=== PATIENT | male | born 1975 | race Caucasian/White ===

== ENCOUNTER → 2023-06-18 12:52 | Outpatient (REF) | payer OTHER, SELFPAY ==
[2023-06-18 14:38] LABS: % Basophils 0.7 % (0-2); % Eosinophils 2.6 % (0-6); % Immature Granulocytes 0.4 % (0-0.5); % Lymphocytes 24.7 % (20.5-51.1); % Neutrophils 61.6 % (42.2-75.2); Absolute Basophils 0.1 10^3/uL (0-0.2); Absolute Eosinophils 0.2 10^3/uL (0-0.7); Absolute Monocytes 0.8 10^3/uL (0.1-0.6); Hematocrit 40.4 % (39.0-52.0); Hemoglobin 14.1 g/dL (13.0-18.0); Mean Corp Hgb Conc. 34.9 g/dL (33.0-37.0); Mean Corpuscular Hgb 30.2 pg (27.0-31.0); Mean Corpuscular Volume 86.5 fL (80.0-94.0); Mean Platelet Volume 9.8 fL (7.4-10.4); Nucleated Red Blood Cells % 0 % (-); Platelet Count 253 10^3/uL (130-400); Red Blood Cell Count 4.67 10^6/uL (4.70-6.10); Red Cell Dist. Width 12.8 % (11.5-14.5); White Blood Cell Count 8.1 10^3/uL (4.8-10.8)
[2023-06-18 14:42] LABS: ALT (SGPT) 19 U/L (0-50); AST (SGOT) 26 U/L (17-59); Albumin 4.7 g/dl (3.5-5.0); Alkaline Phosphatase 86 U/L (38-126); Blood Urea Nitrogen 13 mg/dl (9-20); Calcium 9.8 mg/dl (8.4-10.2); Carbon Dioxide 30 mmol/L (22-30); Chloride 99 mmol/L (98-107); Glucose 87 mg/dl (70-99); Potassium 4.5 mmol/L (3.5-5.1); Sodium 139 mmol/L (135-145); Total Bilirubin 0.6 mg/dl (0.2-1.3); Total Protein 7.5 g/dl (6.3-8.2); eGFR > 60.00
[2023-06-18 14:46] LABS: C-Reactive Protein < 5.00 mg/L (0.0-10.00)
[2023-06-18 14:51] LABS: Total Iron Binding Capacity 347 ug/dl (261-462)
[2023-06-18 15:02] LABS: Erythrocyte Sed Rate 9 mm/hour (0-20)
[2023-06-18 15:20] LABS: Ferritin 46.1 ng/ml (17.9-464.0)
[2023-06-18 15:34] LABS: Vitamin B12 419 pg/ml (239-931)
[2023-06-20 05:13] LABS: Hepatitis B Surface Antigen Negative (Negative)
[2023-06-20 05:31] LABS: Hepatitis B Core Ab, Total Negative (Negative); Hepatitis B Surface Antibody Negative
[2023-06-20 22:31] LABS: Vitamin D 1,25 Dihydroxy 82.3 pg/mL (19.9-79.3)
== END ==
LOC: REG 12:52
PROVIDERS: ATTENDING PHYSICIAN Internal Medicine
DX: K50.818 Crohn's disease of both small and large intestine with other complication (principal)
CPT/HCPCS: 36415; 80053; 82607; 82652; 82728; 83550; 85025; 85652; 86140; 86704; 86706; 87340

== ENCOUNTER → 2023-12-10 10:01 | Outpatient (REF) | payer OTHER, SELFPAY ==
[2023-12-10 12:07] LABS: % Basophils 1.1 % (0-2); % Eosinophils 2.2 % (0-6); % Immature Granulocytes 0.3 % (0-0.5); % Lymphocytes 25.9 % (20.5-51.1); % Monocytes 9.6 % (1.7-9.3); % Neutrophils 60.9 % (42.2-75.2); Absolute Basophils 0.1 10^3/uL (0-0.2); Absolute Eosinophils 0.2 10^3/uL (0-0.7); Absolute Lymphocytes 2.1 10^3/uL (1.2-3.4); Absolute Monocytes 0.8 10^3/uL (0.1-0.6); Absolute Neutrophils 4.8 10^3/uL (1.4-6.5); Hematocrit 43.9 % (39.0-52.0); Hemoglobin 14.7 g/dL (13.0-18.0); Mean Corp Hgb Conc. 33.5 g/dL (33.0-37.0); Mean Corpuscular Hgb 29.5 pg (27.0-31.0); Nucleated Red Blood Cells % 0 % (-); Platelet Count 270 10^3/uL (130-400); Red Blood Cell Count 4.99 10^6/uL (4.70-6.10); Red Cell Dist. Width 12.7 % (11.5-14.5); White Blood Cell Count 7.9 10^3/uL (4.8-10.8)
[2023-12-10 12:22] LABS: ALT (SGPT) 22 U/L (0-50); AST (SGOT) 30 U/L (17-59); Albumin 4.9 g/dl (3.5-5.0); Alkaline Phosphatase 92 U/L (38-126); Blood Urea Nitrogen 11 mg/dl (9-20); Carbon Dioxide 27 mmol/L (22-30); Chloride 101 mmol/L (98-107); Glucose 83 mg/dl (70-99); Sodium 143 mmol/L (135-145); Total Protein 7.7 g/dl (6.3-8.2); eGFR > 60.00
[2023-12-10 12:35] LABS: C-Reactive Protein < 5.00 mg/L (0.0-10.00)
[2023-12-10 12:44] LABS: Erythrocyte Sed Rate 7 mm/hour (0-20)
[2023-12-10 12:53] LABS: Vitamin D, 25-OH*** 47.2 ng/mL (30-80)
[2023-12-10 13:27] LABS: Vitamin B12 481 pg/ml (239-931)
== END ==
LOC: REG 10:01
PROVIDERS: ATTENDING PHYSICIAN Internal Medicine; FAMILY PHYSICIAN Family Medicine
DX: R53.83 Other fatigue (principal); K50.818 Crohn's disease of both small and large intestine with other complication
CPT/HCPCS: 36415; 80053; 82306; 82607; 85025; 85652; 86140

== ENCOUNTER 2024-12-28 13:58 | Inpatient (IN) | payer OTHER, SELFPAY ==
[2024-12-28] VITALS (12 sets, daily range): BP systolic 105–143; BP diastolic 64–97; BMI 23.2; BMI 21.0
--- NOTE | 2024-12-28 09:40 | ED.GENMED ---
History of Present Illness
<Linda Liu PA-C - Last Filed: 12/28/24 13:17>
General
Chief Complaint: Rectal Bleeding
Source: patient
Exam Limitations: none
Time Seen by Provider: 12/28/24 09:11
Nursing documentation reviewed up to this point in time: agreed with
History of Present Illness
History of Present Illness:
see MDM
Past History
<MICHAEL Perry Last Filed: 12/28/24 13:17>
Past History
ED Past Medical History: Other (crohn's disease)
ED Past Surgical History: Bowel resection
Social History
Tobacco: Non-smoker
Alcohol: Occasional
Drug: Marijuana
Personal:
Living: with family
Employment: Employed
Family History
Family History: Other (Noncontributory)
Phy Exam
<MICHAEL Perry Last Filed: 12/28/24 13:17>
Physical Exam
Physical Exam:
GENERAL: Alert , in no apparent distress
EYE: pupils equal and reactive
NECK: Supple
ENT: o/p clr, mmm.
CARDIAC: Regular rate and rhythm .
LUNGS: Clear breath sounds bilaterally, no acute respiratory distress, no wheezes/rales/rhonchi
ABDOMEN: Soft, very minimal lower abdominal tenderness, no r/g, no cvat, normal bowel sounds
Rectal deferred, patient showed me a picture with gross bloody stool and colored water in the toilet
NEUROLOGICAL: Alert and oriented, no focal neuro deficits
SKIN: Warm and dry, skin intact.
MUSCULOSKELETAL: No edema, well perfused. neg elenita's sign
PSYCH: Normal and appropriate interaction.
Course
<MICHAEL Perry Last Filed: 12/28/24 13:17>
Orders/Labs/Results
Orders:
Orders
12/28/24 09:43
Complete Blood Count/With Diff Urgent
ESR [Erythrocyte Sed Rate] Urgent
Lactic Acid Urgent
PTT Urgent
Prothrombin Time Urgent
12/28/24 Lunch
NPO
Allow oral meds: No
Allow clear liquids: No
12/28/24 10:11
0.9% Sodium Chloride 1000 ml [Nss] 1,000 ml IV BOLUS
12/28/24 10:15
Stool Culture Urgent
MACK Source: Feces/Stool
Specimen Description:
Date Specimen was Collected: 12/28/24
Time Specimen was Collected: 10:10
Stool For WBC Urgent
MACK Source: ST
Specimen Description:
Date Specimen was Collected: 12/28/24
Time Specimen was Collected: 10:10
Comment: ST WBC add on per Anne-Marie Clayton
12/28/24 10:16
C DIFF [C difficile Antigen & Toxins] Urgent
MACK Source: Feces/Stool
Specimen Description:
Date Specimen was Collected: 12/28/24
Time Specimen was Collected: 10:10
Giardia/Cryptosporidium Ag Urgent
MACK Source: ST
Specimen Description:
Date Specimen was Collected: 12/28/24
Time Specimen was Collected: 10:10
Comment: Cryptosporidium/Giardia antigen add on per Anne-Maire Clayton
12/28/24 10:42
CT Abd/pelvis Angio W/wo Iv Urgent
Comment:
Reason For Exam: bleeding chrons
12/28/24 10:52
Type+Screen Routine
BBK Wristband Number:
C-Reactive Protein Urgent
Comprehensive Metabolic Panel Urgent
Comment: ADD
Lipase Urgent
Comment: ADD
12/28/24 11:16
Add On- LAB Routine
Tests Added?: Lipase, CMP
12/28/24 12:48
Add On - Microbiology Urgent
Comments:: to stool
Tests Added?: giardia/cryptosporidium and stool for WBC
12/28/24 13:39
Surgical Procedure As Directed
Surgical Procedure: colo
12/28/24 13:43
Admit/Transfer Patient As Directed
Co-Sign Provider:
Level of Care: Inpatient admission
Assign to:: Medical/Surgical
Physician / Group: Hospitalists
Diagnosis: Rectal bleeding
Reason for Hospitalization: Rectal bleeding
Expected length of stay greater than two midnights?: Yes
ELOS- Estimated Length of Stay in days: 2
I certify the patient meets the requirements for IP care: Yes
PRN Pain Medication Management As Directed
May give lesser potent ordered pain med per pt: Yes
preference::
Protocol:: Medication orders for pain may be administered in a
manner that supports deferring to patient preference
when the pt is:
- Requesting an ordered lesser potent pain medication.
Least to most potent pain medications are defined
as: acetaminophen < NSAID < tramadol < opioids
(morphine, oxycodone, hydromorphone).
- Requesting a lesser dose of the same medication IF
ORDERED.
- Requesting a less intrusive route of administration
if both routes are prescribed by the provider (PO <
IV).
12/28/24 13:44
Code Status As Directed
Resuscitation Status: Full Code
12/28/24 16:37
Bisacodyl [Dulcolax] 10 mg RECTAL [id number] PRN
Docusate W/Senna [Senokot-S] 1 tablet PO BIDPRN PRN
Lactated Ringers [Lr] 1,000 ml IV 100 mls/hr
Polyethylene Glycol Powder [Miralax] 17 grams PO DAILYPRN PRN
12/28/24 16:37
Urinalysis Routine
Activity As Directed
Activity Level: As Tolerated
Pneumatic Compression Sleeves As Directed
Type: Knee high
Vital Signs As Directed
Frequency: Per unit guidelines
Pulse Ox/spot Check [RESP] Routine
Quantity: 1
DX Deep Vein Thrombosis Video Routine
12/28/24 17:38
Calprotectin, Fecal [S] Urgent
Date Specimen was Collected: 12/28/24
Time Specimen was Collected: 10:10
12/29/24 05:33
Complete Blood Count/With Diff IN AM
Comprehensive Metabolic Panel IN AM
Ferritin IN AM
Iron IN AM
Magnesium IN AM
PTT IN AM
Prothrombin Time IN AM
Total Iron Binding IN AM
Vitamin B12 IN AM
01/11/25 08:00
Cyanocobalamin 1,000 mcg IM Q2W
Abnormal Lab Results
12/28/24
09:43
RBC 4.52 L 10^6/uL
(4.70-6.10)
Hct 38.9 L %
(39.0-52.0)
Absolute Monos (auto) 0.8 H 10^3/uL
(0.1-0.6)
Lymphocytes % 20.0 L %
(20.5-51.1)
Monocytes % 9.9 H %
(1.7-9.3)
12/28/24 09:43
12/28/24 11:05
Vital Signs
Initial and Last Documented VS:
Initial Vital Signs
Temp Pulse Resp BP Pulse Ox
97.8 F 94 18 143/94 100
12/28/24 08:46 12/28/24 08:46 12/28/24 08:46 12/28/24 08:46 12/28/24 08:46
Last Documented Vital Signs
Temp Pulse Resp BP Pulse Ox
36.6 C 80 23 117/79 100
12/28/24 09:34 12/28/24 12:15 12/28/24 12:15 12/28/24 12:00 12/28/24 10:00
<David Farnsworth, DO - Last Filed: 12/29/24 08:24>
Orders/Labs/Results
Orders:
Orders
12/28/24 09:43
Complete Blood Count/With Diff Urgent
ESR [Erythrocyte Sed Rate] Urgent
Lactic Acid Urgent
PTT Urgent
Prothrombin Time Urgent
12/28/24 Lunch
NPO
Allow oral meds: No
Allow clear liquids: No
12/28/24 10:11
0.9% Sodium Chloride 1000 ml [Nss] 1,000 ml IV BOLUS
12/28/24 10:15
Stool Culture Urgent
MACK Source: Feces/Stool
Specimen Description:
Date Specimen was Collected: 12/28/24
Time Specimen was Collected: 10:10
Stool For WBC Urgent
MACK Source: ST
Specimen Description:
Date Specimen was Collected: 12/28/24
Time Specimen was Collected: 10:10
Comment: ST WBC add on per Anne-Marie Clayton
12/28/24 10:16
C DIFF [C difficile Antigen & Toxins] Urgent
MACK Source: Feces/Stool
Specimen Description:
Date Specimen was Collected: 12/28/24
Time Specimen was Collected: 10:10
Giardia/Cryptosporidium Ag Urgent
MACK Source: ST
Specimen Description:
Date Specimen was Collected: 12/28/24
Time Specimen was Collected: 10:10
Comment: Cryptosporidium/Giardia antigen add on per Anne-Marie Clayton
12/28/24 10:42
CT Abd/pelvis Angio W/wo Iv Urgent
Comment:
Reason For Exam: bleeding chrons
12/28/24 10:52
Type+Screen Routine
BBK Wristband Number:
C-Reactive Protein Urgent
Comprehensive Metabolic Panel Urgent
Comment: ADD
Lipase Urgent
Comment: ADD
12/28/24 11:16
Add On- LAB Routine
Tests Added?: Lipase, CMP
12/28/24 12:48
Add On - Microbiology Urgent
Comments:: to stool
Tests Added?: giardia/cryptosporidium and stool for WBC
12/28/24 13:39
Surgical Procedure As Directed
Surgical Procedure: colo
12/28/24 13:43
Admit/Transfer Patient As Directed
Co-Sign Provider:
Level of Care: Inpatient admission
Assign to:: Medical/Surgical
Physician / Group: Hospitalists
Diagnosis: Rectal bleeding
Reason for Hospitalization: Rectal bleeding
Expected length of stay greater than two midnights?: Yes
ELOS- Estimated Length of Stay in days: 2
I certify the patient meets the requirements for IP care: Yes
PRN Pain Medication Management As Directed
May give lesser potent ordered pain med per pt: Yes
preference::
Protocol:: Medication orders for pain may be administered in a
manner that supports deferring to patient preference
when the pt is:
- Requesting an ordered lesser potent pain medication.
Least to most potent pain medications are defined
as: acetaminophen < NSAID < tramadol < opioids
(morphine, oxycodone, hydromorphone).
- Requesting a lesser dose of the same medication IF
ORDERED.
- Requesting a less intrusive route of administration
if both routes are prescribed by the provider (PO <
IV).
12/28/24 13:44
Code Status As Directed
Resuscitation Status: Full Code
12/28/24 16:37
Bisacodyl [Dulcolax] 10 mg RECTAL [id number] PRN
Docusate W/Senna [Senokot-S] 1 tablet PO BIDPRN PRN
Lactated Ringers [Lr] 1,000 ml IV 100 mls/hr
Polyethylene Glycol Powder [Miralax] 17 grams PO DAILYPRN PRN
12/28/24 16:37
Urinalysis Routine
Activity As Directed
Activity Level: As Tolerated
Pneumatic Compression Sleeves As Directed
Type: Knee high
Vital Signs As Directed
Frequency: Per unit guidelines
Pulse Ox/spot Check [RESP] Routine
Quantity: 1
DX Deep Vein Thrombosis Video Routine
12/28/24 17:38
Calprotectin, Fecal [S] Urgent
Date Specimen was Collected: 12/28/24
Time Specimen was Collected: 10:10
12/29/24 05:33
Complete Blood Count/With Diff IN AM
Comprehensive Metabolic Panel IN AM
Ferritin IN AM
Iron IN AM
Magnesium IN AM
PTT IN AM
Prothrombin Time IN AM
Total Iron Binding IN AM
Vitamin B12 IN AM
01/11/25 08:00
Cyanocobalamin 1,000 mcg IM Q2W
Abnormal Lab Results
12/28/24
09:43
RBC 4.52 L 10^6/uL
(4.70-6.10)
Hct 38.9 L %
(39.0-52.0)
Absolute Monos (auto) 0.8 H 10^3/uL
(0.1-0.6)
Lymphocytes % 20.0 L %
(20.5-51.1)
Monocytes % 9.9 H %
(1.7-9.3)
12/28/24 09:43
12/28/24 11:05
Vital Signs
Initial and Last Documented VS:
Initial Vital Signs
Temp Pulse Resp BP Pulse Ox
97.8 F 94 18 143/94 100
12/28/24 08:46 12/28/24 08:46 12/28/24 08:46 12/28/24 08:46 12/28/24 08:46
Last Documented Vital Signs
Temp Pulse Resp BP Pulse Ox
36.6 C 80 23 117/79 100
12/28/24 09:34 12/28/24 12:15 12/28/24 12:15 12/28/24 12:00 12/28/24 10:00
<Linda Liu PA-C - Last Filed: 12/28/24 13:17>
MDM/Problems Addressed
Differential Diagnosis Includes:
see MDM
MDM/Problems Addressed:
Note:
CHIEF COMPLAINT(S)
Blood in stool, diarrhea.
HISTORY OF PRESENT ILLNESS
The patient is a 49-year-old male with a history of Crohns disease. He reports experiencing bloody stools and diarrhea, which began the previous night. He describes waking up in the middle of the night with diarrhea, noticing blood upon wiping,
which was darker, resembling 'black garcia.' The morning following, he had multiple episodes on the toilet with similar findings, noting blood mixed with the stool. The patient recounts a history of surgical intervention for Crohns disease,
including a partial small bowel resection in 2021 due to persistent bleeding and low hemoglobin levels which required transfusions. He mentions a prior small bowel resection in 2005. He reports having previous treatments for Crohns disease,
including various medications, the last being risankizumab (Skyrizi). He has been medication-free for a significant period due to adverse effects.
The patient associates recent gastrointestinal symptoms with a sinus infection treated two to three weeks ago with doxycycline and amoxicillin clavulanate, alongside prednisone (20 mg for five days). He reports stopping the antibiotics a day early
due to gastrointestinal discomfort. He acknowledges cumulative stress due to his fathers recent surgery and diagnosis of glioblastoma around mid-October.
The patient notes feeling 'drained,' with no significant abdominal pain, vomiting, or fever. He has a past habit of examining his stool, indicating anxiety related to previous experiences of severe bleeding and hospitalization. He perceives the
current episode as less severe than prior tar-like stools but worrisome.
PAST MEDICAL AND SURIGICAL HISTORY
- Crohns disease with partial small bowel resections in 2005 and 2021.
SOCIAL DETERMINANTS AFFECTING HEALTH
The patient reports stress related to his father�s recent hospitalization for glioblastoma and associates current symptoms with anxiety from this and past medical experiences.
MEDICATIONS
- Recently completed a course of doxycycline and amoxicillin clavulanate, accompanied by a prednisone regimen.
PROBLEM LIST
Acute:
- Current gastrointestinal bleeding.
- Diarrhea episode.
Chronic:
- Crohns disease.
PLAN
- Order complete blood count to assess hemoglobin levels.
- Perform stool tests including markers for Crohns disease and to rule out infections like Clostridioides difficile.
- Communicate findings with the real estate director.
- Discuss potential need for CT imaging to evaluate further.
- Consider inpatient observation if symptoms worsen or if tests indicate a need for immediate intervention.
- Evaluate the need for reintroduction of medications for Crohns management after ruling out infections.
DIFFERENTIAL DIAGNOSIS
The Differential Diagnosis includes, in no particular order and is not limited to:
1. Crohns disease flare.
2. Gastrointestinal bleeding secondary to Crohns.
3. Peptic ulcer disease.
4. Clostridioides difficile infection.
5. Infectious colitis.
6. Nonsteroidal anti-inflammatory drug-induced enteropathy.
7. Stress-related gastrointestinal disturbance.
8. Malignancy such as colorectal cancer.
9. Mesenteric ischemia.
10. Acute infectious gastroenteritis.
12/28/24 - 11:40
Patient presents with non-painful rectal bleeding noted to be a mix of red and maroon, mostly occurring since brick layer with three to four episodes along with some diarrhea and minimal pain. He recently completed antibiotics and steroids for a
sinus infection. GI consultation recommended a CT angiography for further evaluation. Hemoglobin is stable at 13. Referred to emergency department by his GI doctor. Rectal exam deferred as patient provided a photo of the bleeding.
12/28/24 - 13:15
CT scan findings reveal active bleeding at the anastomosis site from a previous bowel surgery, potentially contributing to the patients ongoing significant rectal bleeding and decreased hemoglobin levels. The bleeding appears to be intraluminal,
corresponding with the black and red blood in stool samples. Interventional radiology embolization or surgical intervention by colorectal specialists might be necessary to manage this bleeding, as spontaneous cessation is uncertain given current
symptoms. Continued monitoring of hemoglobin levels and stool output is crucial. Multidisciplinary collaboration with gastrointestinal, radiology, and surgical teams is underway to formulate an optimal treatment plan.
<Linda Liu PA-C - Last Filed: 12/28/24 13:17>
*Pulse Oximetry
SaO2: 98
Oxygen Mode of Delivery: Room air
Patient hypoxic: no (100)
*Critical Care Note
Total Time (30-74mins, 75-104mins- exclusive of procedures): Not Applicable
ED Attending Note
<Linda Liu PA-C - Last Filed: 12/28/24 13:17>
-
Portions of this chart may have been created with voice recognition software.� Occasional wrong word or��sound alike� substitutions may have occurred due to the inherent limitations of voice recognition software.
<David Farnsworth DO - Last Filed: 12/29/24 08:24>
ED Attending Note
Patient seen and examined by attending physician: Yes
I performed the substantive portion of visit, reviewed & personally made and approve the management plan that is documented in note by myself or SERG.: Yes
ED Attending Note:
Seen with PA examined independently 49-year-old male Crohn's not on active treatment 2 prior resections presents with rectal bleeding small amount of cramping enough to fill toilet bowl, no blood thinners, labs noted reviewed GI ordered CT angiogram
which was positive at the anastomosis reviewed with patient GI colorectal IR overtaxed patient will be admitted since that the plan is to start with a colonoscopy perhaps further treatments pending his course
Discharge Plan
Departure
Patient Disposition: Admit
Date of Disposition: 12/28/24
Time of Disposition: 13:00
Admit to: Med/Surg
Presentation/result/management discussed w/ accepting MD/DO: Hospitalist
Condition: Fair
Covid-19: Not Applicable
Discharge Problem:
Acute GI bleeding
Interventions
Interventions:
*Risk Screen - Suicide Last Done: 12/28/24 08:46
*General Assessment Last Done: 12/28/24 08:46
*Neglect/Abuse Screening Last Done: 12/28/24 09:47
*ED- Fall Risk Assessment Last Done: 12/28/24 09:47
*ED COVID-19 Vaccine History Last Done: 12/28/24 09:47
*ED Influenza Vaccine History Last Done: 12/28/24 09:47
*Nursing Disposition Last Done: 12/28/24 16:34
UO-Skthfp-Jdrwdiyqxm Assessment Last Done: 12/28/24 09:54
ED- Cardiac Assessment Last Done: 12/28/24 09:54
ED- Pulmonary Assessment Last Done: 12/28/24 09:54
Discharge Date and Time
Discharge Date/Time: 12/28/24 16:36
[2024-12-28 09:57] LABS: Hematocrit 38.9 % (39.0-52.0); Hemoglobin 13.2 g/dL (13.0-18.0); Mean Corp Hgb Conc. 33.9 g/dL (33.0-37.0); Mean Corpuscular Volume 86.1 fL (80.0-94.0); Nucleated Red Blood Cells % 0 % (-); Platelet Count 267 10^3/uL (130-400); Red Cell Dist. Width 13.0 % (11.5-14.5)
[2024-12-28 10:07] LABS: INR 0.99; PT 13.4 Sec (11.4-14.6)
[2024-12-28 10:08] LABS: APTT 29.8 Sec (23.4-35.0)
--- NOTE | 2024-12-28 10:21 | CON.GI ---
Addendum entered and electronically signed by Tiffani Felder MD 12/28/24 17:17:
I saw and examined the patient.
The VICE PRESIDENT OF OPERATIONS or PA's note was reviewed and I agree with the note.
Comment: 49-year-old male with history of Crohn's disease of the small bowel since 1992 status post partial small bowel resection in 2005 and again had segment of small bowel resection with ileocolonic anastomosis in 2021 at [facility], followed by
Dr. Barreto, failed Adrian Jacob Stelara now presenting with rectal bleeding since last night. In the last couple of days has had some abdominal bloating And since Last Night Had Multiple Episodes of Bright Blood with bowel movements. He reports
needing antibiotics and steroids for sinusitis twice since October 2024, last treatment with steroids or antibiotics was last week. Prior to that he was doing relatively well. No abdominal pain, nausea or vomiting. No heartburn or trouble
swallowing. 1 formed stool most days without any blood or black stool. Took 1 Excedrin couple of days ago but no other NSAID use.
He is currently not on any biologic for his Crohn's disease.
Has history of small bowel stricture status post dilation in 2021 and June. History of B12 deficiency.
In the emergency room, CBC, CMP and lipase in normal range.CT angiogram showing small focus of active bleeding in the right abdomen proximal limit of anastomosis, possibly ileocolonic anastomosis.
Prior to this last imaging with MR enterography in September 2021 was unremarkable.
- Rectal bleeding with CT angiogram showing active focus of bleeding from the ileocolonic anastomosis
Rule out anastomotic site ulcer bleed
Will do colonoscopy with rapid prep
Monitor H&H and transfuse if needed
ESR and CRP 12/28/2024 in normal range suggesting no active inflammation related to Crohn's but will follow-up on the colonoscopy as well.
Colorectal surgery is on board as well
Will follow
Original Note:
Consultation
-
Date/Time Consultation Requested: 12/28/24 1030
Date/Time Consultation Performed: 12/28/24 1030
Requesting Provider: David Farnsworth DO
Performing Provider: NICA Black, Tiffani Felder MD
Reason for Consultation: rectal bleeding
Medical History
Chief Complaint / HPI
Chief Complaint: rectal bleeding
History of Present Illness:
Pt is a 49yo presents with hx B12 deficiency, Crohn's disease since 1992. He has hx SB resection in 2005 after 14 years without medications. He has been on multiple medication including Mesalamine agents, steroids, Remicade with reaction with
restart of medication. He then went on Humira and Stelara. Around 2021 he had dilation of anastomosis and began with recurrent rectal bleeding and had eventual SB resection x2 at [facility] for actively bleeding and noted tight stricture
proximal ileum/distal jejunal. His last follow up in [address] Barreto and has not restarted medication and encouraged to restart for concern for recurrence. He was also recommended colonoscopy but did not proceed. He now presents with
onset of rectal bleeding. He admits to recent 2 course of antibiotic therapy for sinus infections and began 12/27 rectal bleeding with about 4 episodes prior to admission and 1 episode in ER with dark red, black and red blood with stools. Pt
deferred rectal exam in ER. On admission note with hbg 13.2 with normal BUN, CRP and ESR.
Pt otherwise admits to mild nausea and minimal lower abdominal pain. He also admits to some looser stool with recent antibiotic use. He otherwise denies dysphagia, odynophagia, GERD, constipation.
08/09/21-EGD� - Normal esophagus� - Gastritis. Biopsied - Normal examined duodenum. Biopsied. neg
08/09/21 colonoscopy - The entire examined colon is normal - Stricture in the terminal ileum.
Past Medical History
Past Medical History: Other (crohn's disease, prior GI bleeding, B12 deficiency, anemia )
Past Surgical History: Bowel Resection (2005 and 2021 and hx prior anastomosis dilation), Orthopedic (shoulder surgery ) and Urological (vastectomy)
Social History
Tobacco: Non-Smoker
Alcohol: Occasional
Drug: Marijuana
Personal:
Living: With Family
Employment: Employed
Family History
Family History: Other (grandfather with crohns, other grandfather and grandmother with colon CA )
Allergies / Home Medications
Allergy/AdvReac Type Severity Reaction Status Date / Time
aspirin Allergy doesn't Verified 12/28/24 08:51
take due
to Crohn's
Disease
infliximab (From Remicade) Allergy Anaphylaxis Verified 12/28/24 08:51
NSAIDS (Non-Steroidal Allergy Patient Verified 12/28/24 08:51
Anti-Inflamma states he
is able to
take
Advil,
Ibuprofen
Salicylates * Allergy doesn't Verified 12/28/24 08:51
take due
to Crohn's
Disease
�Medication �Instructions �Recorded
cyanocobalamin (vitamin B-12) 1,000 mcg IM Q2W 12/26/21
1,000 mcg/mL injection solution
Review of Systems
-
History Source: Patient
Constitutional: Reports No Symptoms
EENT: Reports Other (recent sinus infectious with 2 course of antibiotics )
Respiratory: Reports No Symptoms
Cardiac: Reports No Symptoms
Abdomen/GI: Reports Abdominal Pain, Nausea, Bloody Stools and Black Stools
: Reports No Symptoms
Skin: Reports No Symptoms
Neurological: Reports No Symptoms
Endocrine: Reports No Symptoms
Hematologic/Lymphatic: Reports No Symptoms
Vital Signs
Temp Pulse Resp BP Pulse Ox
97.9 F 92 14 127/87 99
12/28/24 09:34 12/28/24 09:34 12/28/24 09:34 12/28/24 09:34 12/28/24 09:54
Physical Exam
Exam
General: Well Developed, Well Nourished and No Apparent Distress
HEENT: Normocephalic and Anicteric
Respiratory: Clear
Cardiac: Regular Rhythm
GI: Soft, Non Tender and Non Distended
Rectal: Other (pt declined ER rectal )
Musculoskeletal: No Clubbing and No Cyanosis
Skin: Dry
Neuro: Awake, Alert and AO x 3
Psych: Calm
Results
WBC 8.2 10^3/uL (4.8-10.8) 12/28/24 09:43
Hgb 13.2 g/dL (13.0-18.0) 12/28/24 09:43
Hct 38.9 % (39.0-52.0) L 12/28/24 09:43
MCV 86.1 fL (80.0-94.0) 12/28/24 09:43
Plt Count 267 10^3/uL (130-400) 12/28/24 09:43
Absolute Neuts (auto) 5.4 10^3/uL (1.4-6.5) 12/28/24 09:43
PT 13.4 Sec (11.4-14.6) 12/28/24 09:43
INR 0.99 12/28/24 09:43
APTT 29.8 Sec (23.4-35.0) 12/28/24 09:43
Sodium Cancelled 12/28/24 09:43
Potassium Cancelled 12/28/24 09:43
Chloride Cancelled 12/28/24 09:43
Carbon Dioxide Cancelled 12/28/24 09:43
BUN Cancelled 12/28/24 09:43
Creatinine Cancelled 12/28/24 09:43
Calcium Cancelled 12/28/24 09:43
Total Bilirubin Cancelled 12/28/24 09:43
AST Cancelled 12/28/24 09:43
ALT Cancelled 12/28/24 09:43
Alkaline Phosphatase Cancelled 12/28/24 09:43
Lipase Cancelled 12/28/24 09:43
Diagnostic Image Results:
01/27/2020 MR enterography ;small bowel with� no stricture, no enhancement. continue Humira. stricture was likely inflammatory
Prior GI Procedures:�
EGD: 2017; Dr. Silva; irregular Z-line, chronic gastritis, normal duodenum.� Biopsies negative for H. pylori, celiac and Moreira's.
Colonoscopy:
08/09/21-EGD� - Normal esophagus� - Gastritis. Biopsied - Normal examined duodenum. Biopsied. neg
08/09/21 colonoscopy - The entire examined colon is normal - Stricture in the terminal ileum.
06/21/2021; colonoscopy with Dr. Bauer;.� No digital exam are normal, colon entire examined portion normal.� 10 cm from the ileocecal valve contained a benign-appearing intrinsic severe stenosis that was not transversed, TTS dilator was passed
dilated with 10 mm colonic balloon dilator.� There was a superficial tear and some oozing of blood at 10 mm dilation
06/13/2020;Colonoscopy: small bowel and colonic Crohn's, currently off therapy: Good prep to about 12 cm into the ileum.� Scars around the perianal area at 3 and 9:00 concerning for prior fistulas.� Perianal skin tags.� Scattered erythema in the left
colon otherwise colon was endoscopically normal.
Colon biopsies: scattered focal cryptitis otherwise normal.� Terminal ileum endoscopically normal with Chronic and active changes.
Around 12 cm from the ileocecal valve - non-inflammatory stricture that I was unable to pass.� Biopsies were normal.� No inflammatory changes
04/02/2021; colonoscopy, for dilation of small bowel and assessment of disease activity with stricturing ileal crohns controlled on Stelara.�
Excellent prep well into the ileum to the stricture at 12 cm from the ileocecal valve.,� Endoscopically normal colon with normal biopsies throughout without activity.� Distal ileum endoscopically normal with normal biopsies.� Around 12 cm benign
appearing ileal stricture, dilated to 9.5 balloon.� No complications.
08/24/2018 ;colonoscopy, history of stricturing small bowel Crohn's and prior surgery, not on IBD medication.� Recent hospitalization.� Excellent prep to roughly 12 cm into the ileum stopped by a stricture.� Skin tags on perianal exam, fissure on
perianal exam, scattered erythema throughout the rectum sigmoid and descending.� Biopsies consistent with acute cryptitis, negative for dysplasia and a few noncaseating granulomas consistent with Crohn's.� Normal descending colon with normal
biopsies.� Pseudopolyp on the ileocecal valve consistent with acute cryptitis.� Terminal ileum appeared normal with normal biopsies.� Distal ileum strictured and unable to traverse.� terminal ileal stricture consistent with acute inflammation,
negative for dysplasia.� Will start biologic
Assessment / Plan
-
Pt is a 49yo presents with hx B12 deficiency, Crohn's disease since 1992. He has hx SB resection in 2005 after 14 years without medications. He has been on multiple medication including Mesalamine agents, steroids, Remicade with reaction with
restart of medication. He then went on Humira and Stelara. Around 2021 he had dilation of anastomosis and began with recurrent rectal bleeding and had eventual SB resection x2 at [facility] for actively bleeding and noted tight stricture
proximal ileum/distal jejunal. His last follow up in [address] Barreto and has not restarted medication and encouraged to restart for concern for recurrence. He was also recommended colonoscopy but did not proceed. He now presents with
onset of rectal bleeding. He admits to recent 2 course of antibiotic therapy for sinus infections and began 12/27 rectal bleeding with about 4 episodes prior to admission and 1 episode in ER with dark red, black and red blood with stools. Pt
deferred rectal exam in ER. On admission note with hbg 13.2 with normal BUN, CRP<5, ESR 8 on admission.
-rectal bleeding
- hx Crohns with prior anatomic dilation and SB resection 2005 and 2021 with tight stricture proximal ileum/distal jejunal
-hx B12 deficiency and prior anemia
-recent sinusitis with abx x 2
-hx shoulder surgery
-medical non compliance as currently off Crohns therapy
PLAN;
Etiology of bleeding unclear related to underlying crohns disease, anastomotic ulcer vs other
with increased bleeding will check CTA - reviewed with ER
trend hbg and stool record
if continued bleeding may need to colonoscopy EGD/colonoscopy and SB imaging
CRP/ESR normal fecal yogesh pending
will recent antibiotic use check stool studies
reviewed with patient will need to consider eventual therapy for crohns with concern for multiple bowel resection in past and recurrence of disease process
family updated at bedside
-
-
Thank you for consultation and allowing me to participate in the patient's care. Please call the store sales consultant GI physician during the after hours with any questions or concerns.
[2024-12-28] MEDS: NSS 1000 IV (10:22)
[2024-12-28 11:25] LABS: C-Reactive Protein < 5.00 mg/L (0.0-10.00)
[2024-12-28 12:03] LABS: ALT (SGPT) 17 U/L (0-50); AST (SGOT) 21 U/L (17-59); Albumin 3.8 g/dl (3.5-5.0); Alkaline Phosphatase 65 U/L (38-126); Blood Urea Nitrogen 16 mg/dl (9-20); Calcium 8.7 mg/dl (8.4-10.2); Carbon Dioxide 27 mmol/L (22-30); Chloride 107 mmol/L (98-107); Estimated Creatinine Clearance 119 ml/min; Glucose 75 mg/dl (70-99); Lipase 49 U/L (23-300); Potassium 4.4 mmol/L (3.5-5.1); Sodium 138 mmol/L (135-145); Total Protein 6.3 g/dl (6.3-8.2); eGFR > 60.00
--- NOTE | 2024-12-28 13:48 | HPS.HSE ---
Addendum entered and electronically signed by Alyse Frank MD 12/28/24 14:31:
Attending�addendum:
I�saw�and�evaluated�the�patient.�I�reviewed�the�resident�s�note�and�agree�with�findings�and�plan�as�documented�in�the�resident�s�note.��.
Patient is a pleasant 49 years old with a history of chron's disease status post small bowel resection in 2005, currently not on any medications, who came to the ER with rectal bleeding starting today, CT abdomen pelvis with IV contrast in the ER
shows possible anastomosis bleed at ileocolic junction.
�patient seen and examined at bedside, denies any chest pain or shortness of breath, mild abdominal pain, no nausea, no vomiting, no diarrhea or constipation. Headaches.
Physical�exam:
GENERAL : Patient is awake, alert, oriented x3
HEENT: Nonicteric sclerae, PERRLA, EOMI. Oropharynx clear. Moist mucous membranes. Conjunctivae appear well perfused.
CHEST: Chest wall is nontender.
HEART: Regular rate and rhythm without murmurs.
LUNGS: Clear to auscultation bilaterally.
ABDOMEN: Soft, positive bowel sounds, nontender, no organomegaly.
RECTAL: Deferred.
MUSCLES/EXTREMITIES No abnormal range of motion, no swelling.SKIN: No rash, no excessive bruising, petechiae, or purpura.
NEUROLOGIC: Cranial nerves II-XII intact without motor/sensory deficit.
�
Assessment/plan:
Rectal bleeding.
CTA shows Small focus of active intestinal bleeding in the right abdomen at the approximate level of anastomosis, possibly ileocolic anastomosis.
Tiny nonobstructing right renal calculus.
Possible secondary to anastomosis leak.
Continue to trend H&H.
GI consult.
IR consult
�
Abnormal labs:
Wounds:
CODE STATUS: Full code
DVT prophylaxis: SCDs
Diet: NPO for now
Family communication: Discussed with at bedside
Disposition: Keep n.p.o., possible colonoscopy by GI
Total�time�spent�on�today�s�encounter�was�75�minutes�which�included�time�spent�in�counseling�the�patient/family�regarding�diagnosis�and�treatment�plan�as�listed�above,�goals�of�care,�and�symptom�management.�Case�was�discussed�with�nursing�staff,�spec
ialists,�and�care�coordinators/case�management.�All�labs�and�imaging�personally�reviewed�by�me.�Remainder�the�time�spent�in�detailed�review�of�previous�records,�lab�data,�imaging,�and�other�medical�provider�documentation.
Original Note:
Family Physician
-
Family Physician: NOT KNOW UNKNOWN - PT DOES
Chief Complaint
-
Rectal bleeding
History of Present Illness
Patient is a 49 years old male with past medical history of Crohn's disease, diagnosed in 1992. He required a small bowel resection in 2005 as he was not on any medications. He has been on multiple medications since then including mesalamine
agents, steroids, Remicade which she did not tolerate well and was then switched to Humira and Stelara. In 2021, he had leakage of anastomosis, presented with recurrent rectal bleed to [place] and had eventual small bowel resection with a noted
tight stricture in proximal ileum/distal jejunum.
He follows up with [facility] and his last visit was in [address] Prieto, encouraged to restart his medications for concern for recurrence. Last colonoscopy was in 2021.
He was in his usual state of health, when he noticed blood in his stools yesterday. He had 4 episodes prior to presentation to the ER and had another episode in the ER where he passed stool with dark red and bright red blood.
He also complains of associated abdominal pain and right lower quadrant.
He recently used an antibiotics for sinus infection and takes vitamin B12 injections and has otherwise insignificant past medical history
Medical History
Past Medical History
Past Medical History: Reports Other (Crohn's disease, gastritis, vitamin B12 deficiency)
Past Surgical History: Reports Bowel Resection (2005 and 2021), Orthopedic (Shoulder surgery) and Urological (Vasectomy)
Social History
Tobacco: Non-smoker
Alcohol: Occasional
Drug: Marijuana
Personal:
Living: With Family
Employment: Employed
Family History
Family History: Other (History of Crohn's disease (grandfather )and colon cancer(grandfather and grandmother))
Allergies / Home Medications
Allergies reflects when Allergies were last updated in [facility].
Home Medications with original date entered in [facility]
Allergy/Medication List:
Allergies
Allergy/AdvReac Type Severity Reaction Status Date / Time
aspirin Allergy doesn't Verified 12/28/24 08:51
take due
to Crohn's
Disease
infliximab (From Remicade) Allergy Anaphylaxis Verified 12/28/24 08:51
NSAIDS (Non-Steroidal Allergy Patient Verified 12/28/24 08:51
Anti-Inflamma states he
is able to
take
Advil,
Ibuprofen
Salicylates * Allergy doesn't Verified 12/28/24 08:51
take due
to Crohn's
Disease
Home Medications
cyanocobalamin (vitamin B-12) 1,000 mcg/mL injection solution 1,000 mcg IM Q2W 12/26/21
Review of Systems
-
Abdomen/GI: Reports Abdominal Pain and Bloody Stools
Physical Exam
Vital Signs
Vital Signs
Temp Pulse Resp BP Pulse Ox
97.9 F 80 23 117/79 100
12/28/24 09:34 12/28/24 12:15 12/28/24 12:15 12/28/24 12:00 12/28/24 10:00
Physical Exam
General: Well Developed, Well Nourished and No Apparent Distress
HEENT: Anicteric, Moist mucous membranes and [place] Conjunctivae
Respiratory: Clear; No Wheezes, Rales or Rhonchi
Cardiac: S1/S2 and Regular Rhythm; No Murmur, Rub or Gallop
GI: Soft, Normal Bowel Sounds and Tender (Tender in right lower quadrant)
Musculoskeletal: No Clubbing, No Cyanosis and No Edema
Skin: Warm and Dry
Neuro: Awake, AO x 3 and Nonfocal/grossly intact
Psych: Calm
Laboratory Results
-
12/28/24 09:43
12/28/24 11:05
Laboratory Results
PT 13.4 Sec (11.4-14.6) 12/28/24 09:43
INR 0.99 12/28/24 09:43
APTT 29.8 Sec (23.4-35.0) 12/28/24 09:43
Lactic Acid 1.4 mmol/L (0.7-2.0) 12/28/24 09:43
Total Bilirubin Cancelled 12/28/24 11:05
AST Cancelled 12/28/24 11:05
ALT Cancelled 12/28/24 11:05
Alkaline Phosphatase Cancelled 12/28/24 11:05
Lipase Cancelled 12/28/24 11:05
Impression/Plan
-
IMPRESSION:
49-year-old male with past medical history significant for Crohn's disease s/p bowel resection in 2005 and 2021. Tried multiple medications in the past, medication noncompliance and not using any medications right now.
Admitted with bright red bleeding per rectum along with clots.
Hemoglobin on admission 13.2, normal BUN, CRP less than 5, ESR 8 on admission
History of vitamin B12 deficiency
Recently had 2 courses of antibiotics for sinusitis
ASSESSMENT/PLAN:
# Bright red bleeding per rectum most likely secondary to underlying Crohn's disease/anastomotic leakage
CT abdomen/pelvis
IMPRESSION:
Small focus of active intestinal bleeding in the right abdomen at the approximate level of anastomosis, possibly ileocolic anastomosis.
Tiny nonobstructing right renal calculus.
Trend H&H and keep stool record to estimate the loss of blood
Keep n.p.o.
Start IV fluids
GI recommendations appreciated-possible colonoscopy/EGD
Follow fecal calprotectin, stool studies
Transfuse blood if hemoglobin drops less than 7
#History of vitamin B12 deficiency
#Crohn's disease with noncompliance to medication
DVT prophylaxis-sequential compression devices
CODE STATUS-full code
N.p.o.
--- NOTE | 2024-12-28 14:15 | EDCM ---
CM reviewed chart and met with pt bedside in ED. Lives with his in mutistory home, 2 LE.
Independent in ADLs, personal care and ambulation at baseline. no assistive devices, no DME.
Confirms prescription coverage.
No hx VN or SNF
PCP: Octavio Velez
Pharmacy: [facility] or [facility].
Anticipate discharge home, no needs. CM will continue to follow.
[2024-12-28] MEDS: GAVILAX 238 GM PO (14:18)
--- NOTE | 2024-12-28 14:20 | PTCARENOTE ---
Polyethyelene Gycol prep started. GI notified. Pt instructed to drink 8 ounces every 15minutes until finished.
[2024-12-28] MEDS: LR 1000 IV (17:08)
[2024-12-28] MEDS: ZOFRAN 4 MG IV (17:45)
--- NOTE | 2024-12-28 17:57 | PTCARENOTE ---
1630 Pt arrived from ED. Able to ambulate into room. VSS. at bedside. Oriented to room and call wagoner.
--- NOTE | 2024-12-28 21:05 | PTCARENOTE ---
20:15 pt returned from colonoscopy. VS WNL, denies any discomfort or GI pain. pt will be NPO at [facility] for MRI 12/30/19
[2024-12-28 21:31] LABS: Hematocrit 30.3 % (39.0-52.0); Hemoglobin 10.3 g/dL (13.0-18.0)
[2024-12-28] MEDS: TYLENOL 650 MG PO (22:50)
[2024-12-29] MEDS: LR 1000 IV ×2 (03:43→16:11)
[2024-12-29] MEDS: TYLENOL 650 MG PO ×2 (03:46→08:26)
--- NOTE | 2024-12-29 04:49 | PTCARENOTE ---
pt flushed urine from urinal forgetting urine sample was needed.
[2024-12-29 06:26] LABS: INR 1.11; PT 14.6 Sec (11.4-14.6)
[2024-12-29 06:27] LABS: APTT 30.5 Sec (23.4-35.0)
[2024-12-29 06:37] LABS: ALT (SGPT) 15 U/L (0-50); AST (SGOT) 19 U/L (17-59); Albumin 3.3 g/dl (3.5-5.0); Alkaline Phosphatase 60 U/L (38-126); Blood Urea Nitrogen 9 mg/dl (9-20); Calcium 8.6 mg/dl (8.4-10.2); Carbon Dioxide 28 mmol/L (22-30); Chloride 109 mmol/L (98-107); Estimated Creatinine Clearance 110 ml/min; Glucose 86 mg/dl (70-99); Iron 89 ug/dl (49-181); Magnesium 1.8 mg/dl (1.6-2.3); Potassium 4.3 mmol/L (3.5-5.1); Sodium 138 mmol/L (135-145); Total Protein 5.6 g/dl (6.3-8.2); eGFR > 60.00
[2024-12-29 06:46] LABS: Total Iron Binding Capacity 289 ug/dl (261-462)
[2024-12-29 06:58] LABS: Hematocrit 29.7 % (39.0-52.0); Hemoglobin 10.0 g/dL (13.0-18.0); Mean Corp Hgb Conc. 33.7 g/dL (33.0-37.0); Mean Corpuscular Volume 90.3 fL (80.0-94.0); Nucleated Red Blood Cells % 0 % (-); Platelet Count 207 10^3/uL (130-400); Red Cell Dist. Width 12.6 % (11.5-14.5)
[2024-12-29 07:09] LABS: Ferritin 66.2 ng/ml (17.9-464.0)
[2024-12-29 07:23] LABS: Vitamin B12 620 pg/ml (239-931)
[2024-12-29 07:50] VITALS: BP 110/67
[2024-12-29] MEDS: FIORICET 1 TAB PO (09:03)
[2024-12-29] MEDS: CYANOCOBALAMIN 1000 MCG IM (09:04)
--- NOTE | 2024-12-29 09:28 | W.PN.HOSP.TC ---
Addendum entered and electronically signed by Alyse Frank MD 12/29/24 11:54:
Attending�addendum:
I�saw�and�evaluated�the�patient.�I�reviewed�the�resident�s�note�and�agree�with�findings�and�plan�as�documented�in�the�resident�s�note.��
�patient seen and examined at bedside, denies any chest pain or shortness of breath, no abdominal pain, no nausea, no vomiting, no diarrhea or constipation.
Physical�exam:
GENERAL : Patient is awake, alert, oriented x3
HEENT: Nonicteric sclerae, PERRLA, EOMI. Oropharynx clear. Moist mucous membranes. Conjunctivae appear well perfused.
CHEST: Chest wall is nontender.
HEART: Regular rate and rhythm without murmurs.
LUNGS: Clear to auscultation bilaterally.
ABDOMEN: Soft, positive bowel sounds, nontender, no organomegaly.
RECTAL: Deferred.
MUSCLES/EXTREMITIES: No abnormal range of motion, no swelling.SKIN: No rash, no excessive bruising, petechiae, or purpura.
NEUROLOGIC: Cranial nerves II-XII intact without motor/sensory deficit.
�
Assessment/plan:
Lower GI bleeding.
Status post colonoscopy with blood in the entire colon, normal colonic mucosa.
Normal ESR and CRP.
GI recommending MR enterography
Continue to monitor
Vitamin B12 deficiency.
Continue with vitamin B12 injection
Acute blood loss anemia.
Monitor hemoglobin
CODE STATUS: Full code
DVT prophylaxis: SCDs
Diet: NPO
Family communication: Discussed with at bedside
Disposition: MR enterography
Total time spent on today�s encounter was 51 minutes which included time spent in counseling the patient/family regarding diagnosis and treatment plan as listed above, goals of care, and symptom management. Case was discussed with nursing staff,
specialists, and care coordinators/case management. All labs and imaging personally reviewed by me. Remainder the time spent in detailed review of previous records, lab data, imaging, and other medical provider documentation.
Original Note:
Today's Communication/Plan
-
MR enterography
Assessment / Plan
Assessment / Plan
49-year-old male with past medical history of Crohn's disease s/p bowel resection in 2005 and 2021. Noncompliant to medications.
Bright red bleeding per rectum
Abdominal CT/pelvis 12/28/2024
IMPRESSION:
Small focus of active intestinal bleeding in the right abdomen at the approximate level of anastomosis, possibly ileocolic anastomosis.
Tiny nonobstructing right renal calculus.
Colonoscopy 12/28/2024
Impression:
- Anal canal stenosis found on perianal exam.
- Blood in the entire examined ileum.
- Blood in the entire examined colon. Normal colonic mucosa without
inflammation.
- Stricture in the recto-sigmoid colon.
- Diverticulosis in the sigmoid colon.
Assessment/plan
Bright red bleeding per rectum
Unclear source of bleeding
S/p colonoscopy-blood in entire colon, normal colonic mucosa without inflammation, anal canal stenosis, diverticulosis
ESR and CRP normal
Hemoglobin dropped to 10 -did not receive any blood transfusions-continue to monitor H&H
Patient n.p.o. for MR enterography
Discussed the results of colonoscopy-explained to the patient that we need MR enterography to identify the source
Since inflammatory markers are normal and colonic mucosa is normal it is most likely unrelated to the Crohn's
GI following-Appreciate recommendations
Continue PPIs and Ringer lactate
History of vitamin B12 deficiency
History of bowel resections in 2005 and 2021
History of Crohn's disease-noncompliant to medications
DVT prophylaxis-sequential compression devices
CODE STATUS-full code
N.p.o.
Due for MR enterography today
Anticipated Discharge: 24 - 48 hours
Subjective/Interval History
-
Date of Service: December 29, 2024
Patient seen and examined at bedside
Reports headache
Anxious about his source of bleed otherwise feels well
Objective Data
-
Labs:
Laboratory Results
12/28/24 12/29/24 12/29/24
20:59 05:33 11:45
WBC 6.8
Hgb 10.3 L D 10.0 L Pending
Hct 30.3 L 29.7 L Pending
Plt Count 207 D
PT 14.6
INR 1.11
APTT 30.5
Sodium 138
Potassium 4.3
Chloride 109 H
Carbon Dioxide 28
BUN 9
Creatinine 0.7
Glucose 86
Calcium 8.6
Total Bilirubin 0.9
AST 19
ALT 15
Alkaline Phosphatase 60
Vital Signs:
Vital Signs
Temp Pulse Resp BP Pulse Ox
98.3 F 79 16 110/67 99
12/29/24 07:50 12/29/24 07:50 12/29/24 07:50 12/29/24 07:50 12/29/24 07:50
I&O
12/28/24 12/29/24 12/30/24
06:59 06:59 06:59
Intake Total 2119
Balance 2119
Review of Systems
-
Abdomen/GI: Reports Bloody Stools
Neuro: Reports Headache
Physical Exam
-
General: Well Developed, Well Nourished, No Apparent Distress and Comfortable
HEENT: Moist Mucous Membranes, Anicteric and [place] Conjunctivae
Respiratory: Clear to Auscultation; Negative Wheezes, Rales or Rhonchi
Cardiac: Regular Rhythm and S1/S2
GI: Soft, Nontender and Normal Bowel Sounds
Musculoskeletal: No Clubbing, No Cyanosis and No Edema
Skin: Warm and Dry
Neuro: Awake, AO x 3 and Nonfocal/Grossly Intact
Psych: Calm
[2024-12-29 09:41] LABS: Urine Character Clear (Clear)
[2024-12-29] MEDS: PROTONIX IV 40 MG IV ×2 (10:30→20:26)
[2024-12-29] MEDS: NSS (PRESERVATIVE FREE) 10 ML IV ×2 (10:30→20:26)
--- NOTE | 2024-12-29 13:13 | W.PN.GI.CBS2 ---
Today's Communication / Plan
-
On Clear liquid diet and tolerating.
Await MR Enterography to evaluate the small bowel.
Monitor H/H ,transfuse as needed.
If bleeding continues, could be related to small bowel bleed, colorectal surgery is on board.
Avoid NSAID's
He will need to follow up with for initiation of biologic for the small bowel crohns.
CRP/ESR normal fecal yogesh pending-colon mucosa did not show any evidence of inflammation, old blood noted though.
Stool for C. difficile, Cryptosporidium negative, cultures pending. Few white cells noted in the stool.
Will follow-up on the above testing
Assessment / Plan
-
Pt is a 49yo presents with hx B12 deficiency, Crohn's disease since 1992. He has hx SB resection in 2005 after 14 years without medications. He has been on multiple medication including Mesalamine agents, steroids, Remicade with reaction with
restart of medication. He then went on Humira and Stelara. Around 2021 he had dilation of anastomosis and began with recurrent rectal bleeding and had eventual SB resection x2 at [place] for actively bleeding and noted tight stricture
proximal ileum/distal jejunal. His last follow up in [address] Barreto and has not restarted medication and encouraged to restart for concern for recurrence. He was also recommended colonoscopy but did not proceed. He now presents with
onset of rectal bleeding. He admits to recent 2 course of antibiotic therapy for sinus infections and began 12/27 rectal bleeding with about 4 episodes prior to admission and 1 episode in ER with dark red, black and red blood with stools. Pt
deferred rectal exam in ER. On admission note with hbg 13.2 with normal BUN, CRP<5, ESR 8 on admission.
-rectal bleeding
- hx Crohns with prior anatomic dilation and SB resection 2005 and 2021 with tight stricture proximal ileum/distal jejunal
-hx B12 deficiency and prior anemia
-recent sinusitis with abx x 2
-hx shoulder surgery
-medical non compliance as currently off Crohns therapy
PLAN;
- On Clear liquid diet and tolerating.
Await MR Enterography to evaluate the small bowel.
Monitor H/H ,transfuse as needed.
If bleeding continues, could be related to small bowel bleed, colorectal surgery is on board.
Avoid NSAID's
He will need to follow up with for initiation of biologic for the small bowel crohns.
CRP/ESR normal fecal yogesh pending-colon mucosa did not show any evidence of inflammation, old blood noted though.
Stool for C. difficile, Cryptosporidium negative, cultures pending. Few white cells noted in the stool.
Will follow-up on the above testing
Subjective
Subjective
Date of Service: December 29, 2024
Denies any abdominal pain, nausea or vomiting. No bowel movements at all since procedure last night. No fevers or chills.
Objective
Data Reviewed
Laboratory Data:
Laboratory Results
12/29/24 05:33
Laboratory Results
PT 14.6 Sec (11.4-14.6) 12/29/24 05:33
INR 1.11 12/29/24 05:33
APTT 30.5 Sec (23.4-35.0) 12/29/24 05:33
Magnesium 1.8 mg/dl (1.6-2.3) 12/29/24 05:33
Total Bilirubin 0.9 mg/dl (0.2-1.3) 12/29/24 05:33
AST 19 U/L (17-59) 12/29/24 05:33
ALT 15 U/L (0-50) 12/29/24 05:33
Alkaline Phosphatase 60 U/L (38-126) 12/29/24 05:33
Lipase Cancelled 12/28/24 11:05
Vital Signs and I&O:
Vital Signs
Temp Pulse Resp BP Pulse Ox
98.3 F 79 16 110/67 99
12/29/24 07:50 12/29/24 07:50 12/29/24 07:50 12/29/24 07:50 12/29/24 10:39
I&O
12/28/24 12/29/24 12/30/24
06:59 06:59 06:59
Intake Total 2119
Balance 2119
Physical Exam
Physical Exam
GI: Soft, Non Distended and Non Tender
[2024-12-29 13:20] VITALS: BP 107/69
--- NOTE | 2024-12-29 13:54 | CM ---
chart reviewed
MR Enterography today
monitoring h&h
PLAN: home, no needs anticipated when stable
[2024-12-29 14:02] LABS: Hematocrit 28.7 % (39.0-52.0); Hemoglobin 9.8 g/dL (13.0-18.0)
[2024-12-29 15:45] VITALS: BP 107/65
[2024-12-29 17:59] LABS: C-Reactive Protein < 5.00 mg/L (0.0-10.00)
[2024-12-29 18:27] LABS: Hematocrit 28.9 % (39.0-52.0); Hemoglobin 9.9 g/dL (13.0-18.0)
[2024-12-29 23:03] VITALS: BP 108/71
[2024-12-29] MEDS: MELATONIN 5 MG PO (23:09)
[2024-12-29 23:32] VITALS: BP 108/71
[2024-12-30 00:44] LABS: Hematocrit 26.3 % (39.0-52.0); Hemoglobin 9.2 g/dL (13.0-18.0)
[2024-12-30] MEDS: TYLENOL 1000 MG PO (02:11)
--- NOTE | 2024-12-30 02:15 | PTCARENOTE ---
Pt states he can hear IV pump and that the noises are giving him a headache. Ear plugs given as well as Tylenol. melatonin also ordered and given. Pt calling again asking for IV fluids to be stopped/asking why he still needs them. RN explained
reason for IV fluids, pt still wants them to be stopped. IVF paused for now.
[2024-12-30 07:15] VITALS: BP 124/78
[2024-12-30 07:45] LABS: Hematocrit 30.0 % (39.0-52.0); Hemoglobin 10.5 g/dL (13.0-18.0)
[2024-12-30 08:15] LABS: Blood Urea Nitrogen 7 mg/dl (9-20); Calcium 9.2 mg/dl (8.4-10.2); Carbon Dioxide 25 mmol/L (22-30); Chloride 108 mmol/L (98-107); Estimated Creatinine Clearance 96 ml/min; Glucose 88 mg/dl (70-99); HDL Cholesterol 61 mg/dl; LDL Cholesterol, Calculated 76 mg/dl; Potassium 4.1 mmol/L (3.5-5.1); Sodium 139 mmol/L (135-145); Very Low Density Lipoprotein 17 mg/dl (0-30); eGFR > 60.00
[2024-12-30 08:16] LABS: C-Reactive Protein < 5.00 mg/L (0.0-10.00)
--- NOTE | 2024-12-30 08:24 | CM ---
Patient's chart reviewed
monitor h&h
PLAN: Home, no needs when stable
to transport
--- NOTE | 2024-12-30 08:43 | W.PN.HOSP.TC ---
Addendum entered and electronically signed by Alyse Frank MD 12/30/24 12:00:
Attending�addendum:
I�saw�and�evaluated�the�patient.�I�reviewed�the�resident�s�note�and�agree�with�findings�and�plan�as�documented�in�the�resident�s�note.��
�patient seen and examined at bedside, denies any chest pain or shortness of breath, no abdominal pain, no nausea, no vomiting, no diarrhea or constipation.
Physical�exam:
GENERAL : Patient is awake, alert, oriented x3
HEENT: Nonicteric sclerae, PERRLA, EOMI. Oropharynx clear. Moist mucous membranes. Conjunctivae appear well perfused.
CHEST: Chest wall is nontender.
HEART: Regular rate and rhythm without murmurs.
LUNGS: Clear to auscultation bilaterally.
ABDOMEN: Soft, positive bowel sounds, nontender, no organomegaly.
RECTAL: Deferred.
MUSCLES/EXTREMITIES: No abnormal range of motion, no swelling.SKIN: No rash, no excessive bruising, petechiae, or purpura.
NEUROLOGIC: Cranial nerves II-XII intact without motor/sensory deficit.
�
Assessment/plan:
Lower GI bleeding.
Status post colonoscopy with blood in the entire colon, normal colonic mucosa.
Normal ESR and CRP.
GI recommending MR enterography which shows MR enterography-Right lower quadrant short 3 cm segment of small bowel with active inflammation. Secondary luminal narrowing. Mild gaseous distention of small bowel, raising the possibility of an element
of functional obstruction.
Vitamin B12 deficiency.
Continue with vitamin B12 injection
Acute blood loss anemia.
Monitor hemoglobin- now stable.
CODE STATUS: Full code
DVT prophylaxis: SCDs
Diet: advance diet to LRD
Family communication: Discussed with at bedside
Disposition: Discharge home today.
Total time spent on today�s encounter was 51 minutes which included time spent in counseling the patient/family regarding diagnosis and treatment plan as listed above, goals of care, and symptom management. Case was discussed with nursing staff,
specialists, and care coordinators/case management. All labs and imaging personally reviewed by me. Remainder the time spent in detailed review of previous records, lab data, imaging, and other medical provider documentation.
Original Note:
Today's Communication/Plan
-
Follow hepatitis and TB screening tests
Advance diet as tolerated
Follow-up with GI on outpatient basis
Assessment / Plan
Assessment / Plan
49-year-old male with past medical history of Crohn's disease s/p bowel resection in 2005 and 2021. Noncompliant to medications.
Bright red bleeding per rectum
Abdominal CT/pelvis 12/28/2024
IMPRESSION:
Small focus of active intestinal bleeding in the right abdomen at the approximate level of anastomosis, possibly ileocolic anastomosis.
Tiny nonobstructing right renal calculus.
Colonoscopy 12/28/2024
Impression:
- Anal canal stenosis found on perianal exam.
- Blood in the entire examined ileum.
- Blood in the entire examined colon. Normal colonic mucosa without
inflammation.
- Stricture in the recto-sigmoid colon.
- Diverticulosis in the sigmoid colon.
Assessment/plan
Bright red bleeding per rectum
S/p colonoscopy-blood in entire colon, normal colonic mucosa without inflammation, anal canal stenosis, diverticulosis
ESR and CRP normal
MR enterography-Right lower quadrant short 3 cm segment of small bowel with active inflammation. Secondary luminal narrowing. Mild gaseous distention of small bowel, raising the possibility of an element of functional obstruction.
No further bleeding, tolerating full liquid diet-plan to advance diet as tolerated
Hemoglobin stable around 10-did not receive any blood transfusions
GI following-Appreciate recommendations-plan to start biological agents for Crohn's disease on outpatient basis
Follow hepatitis screen and TB screening tests prior to starting medications for Crohn's disease
Avoid NSAIDs and blood thinners
Inflammatory markers are normal and colonic mucosa is normal although old blood noted throughout the colon and mildly
Tested negative for C. difficile Cryptosporidium. Few white blood cells noted in stool
Continue PPIs and Ringer lactate
If patient tolerates low residue diet, hemoglobin remains stable and GI clears-plan to discharge and follow-up with Dr. Barreto on outpatient basis
History of vitamin B12 deficiency
History of bowel resections in 2005 and 2021
History of Crohn's disease-noncompliant to medications
DVT prophylaxis-sequential compression devices
CODE STATUS-full code
N.p.o.
Disposition-if patient tolerates low residue diet, hemoglobin remained stable and GI clears plan to discharge home
Anticipated Discharge: Within 24 hours
Subjective/Interval History
-
Date of Service: December 30, 2024
Patient seen and examined at bedside
Feels well, denies any abdominal pain, nausea, had a bowel movement this morning without any blood
Tolerating full liquid diet, wants to start low residue diet
Motivated to start medication for Crohn's disease
Objective Data
-
Labs:
Laboratory Results
12/30/24 12/30/24 12/30/24
00:14 07:33 16:45
Hgb 9.2 L 10.5 L Pending
Hct 26.3 L 30.0 L Pending
Sodium 139
Potassium 4.1
Chloride 108 H
Carbon Dioxide 25
BUN 7 L
Creatinine 0.8
Glucose 88
Calcium 9.2
Vital Signs:
Vital Signs
Temp Pulse Resp BP Pulse Ox
97.6 F 80 18 124/78 98
12/30/24 07:15 12/30/24 07:15 12/30/24 07:15 12/30/24 07:15 12/30/24 07:15
I&O
12/29/24 12/30/24 12/31/24
06:59 06:59 06:59
Intake Total 2119 1380 / 1380
Balance 2119 1380 / 1380
Review of Systems
-
All other systems: Reviewed and negative
Physical Exam
-
General: Well Developed, No Apparent Distress and Comfortable
HEENT: Normocephalic, Moist Mucous Membranes, Anicteric and [place] Conjunctivae
Respiratory: Clear to Auscultation
Cardiac: Regular Rhythm and S1/S2; Negative Murmur, Rub or Gallop
GI: Soft, Nontender and Normal Bowel Sounds
Skin: Warm and Dry
Neuro: Awake, AO x 3 and Nonfocal/Grossly Intact
Psych: Calm
[2024-12-30] MEDS: PROTONIX IV 40 MG IV (08:58)
[2024-12-30] MEDS: NSS (PRESERVATIVE FREE) 10 ML IV (08:58)
[2024-12-30] MEDS: LR IV (09:08)
--- NOTE | 2024-12-30 11:14 | W.DCSUMMARY ---
Addendum entered and electronically signed by Alyse Frank MD 12/30/24 15:45:
Attending�addendum:
I�saw�and�evaluated�the�patient.�I�reviewed�the�resident�s�note�and�agree�with�findings�and�plan�as�documented�in�the�resident�s�note.��
�patient seen and examined at bedside, denies any chest pain or shortness of breath, no abdominal pain, no nausea, no vomiting, no diarrhea or constipation.
Physical�exam:
GENERAL : Patient is awake, alert, oriented x3
HEENT: Nonicteric sclerae, PERRLA, EOMI. Oropharynx clear. Moist mucous membranes. Conjunctivae appear well perfused.
CHEST: Chest wall is nontender.
HEART: Regular rate and rhythm without murmurs.
LUNGS: Clear to auscultation bilaterally.
ABDOMEN: Soft, positive bowel sounds, nontender, no organomegaly.
RECTAL: Deferred.
MUSCLES/EXTREMITIES: No abnormal range of motion, no swelling.SKIN: No rash, no excessive bruising, petechiae, or purpura.
NEUROLOGIC: Cranial nerves II-XII intact without motor/sensory deficit.
�
Assessment/plan:
Lower GI bleeding.
Status post colonoscopy with blood in the entire colon, normal colonic mucosa.
Normal ESR and CRP.
GI recommending MR enterography which shows MR enterography-Right lower quadrant short 3 cm segment of small bowel with active inflammation. Secondary luminal narrowing. Mild gaseous distention of small bowel, raising the possibility of an element
of functional obstruction.
Vitamin B12 deficiency.
Continue with vitamin B12 injection
Acute blood loss anemia.
Monitor hemoglobin- now stable.
CODE STATUS: Full code
DVT prophylaxis: SCDs
Diet: advance diet to LRD
Family communication: Discussed with at bedside
Disposition: Discharge home today.
Total time spent on today�s encounter was 51 minutes which included time spent in counseling the patient/family regarding diagnosis and treatment plan as listed above, goals of care, and symptom management. Case was discussed with nursing staff,
specialists, and care coordinators/case management. All labs and imaging personally reviewed by me. Remainder the time spent in detailed review of previous records, lab data, imaging, and other medical provider documentation.
Original Note:
Documented by User: Monique Fu MD, Resident 12/30/24 15:31
Discharge Summary
Discharge Data
Date of Admission: 12/28/24
Date of Discharge: 12/30/24
-
Pending Results: No
Hospital Course
Discharging Physician :
Alyse Frank
Disposition :
Home
Primary care physician :
None
Principal Discharge diagnosis :
Bright Red bleeding per rectum
Crohns disease
Chronic Discharge diagnosis :
History of vitamin B12 deficiency
History of bowel resections in 2005 and 2021
History of Crohn's disease-noncompliant to medications
Hospital Course :
Patient is a 49-year-old male with past medical history as mentioned above, noncompliant to medications presented with onset of rectal bleeding. He had 4 bloody bowel movements at home before coming to the ER the next day. He had another bowel
movement with blood in the ER. CT abdomen/pelvis was done that revealed a small focus of active intestinal bleeding in right abdomen at approximate level of ileocolic anastomosis. GI was consulted-colonoscopy was done the same day that showed
blood in the entire colon and I ileum along with stricture in rectosigmoid colon and diverticulosis in sigmoid colon. The bleeding source could not be identified on colonoscopy, colon mucosa was normal in appearance. MR enterography was done the
next day that revealed right lower quadrant short 3 cm segment of small bowel with active inflammation. Secondary luminal narrowing. Mild gaseous distention of small bowel, raising the possibility of an element of functional obstruction. The
bleeding stopped and the patient had no further bleeding episodes. He did not require any blood transfusion throughout the stay. His hemoglobin stabilized around 10. Tolerated the diet starting with clears advancing up to the low residue diet.
GI recommended starting biological agents on outpatient basis for Crohn's disease. Screening test including hepatitis serology and TB screening were sent out. Patient will follow-up with GI on outpatient basis.
Important imaging findings :
Abdominal CT/pelvis 12/28/2024
IMPRESSION:
Small focus of active intestinal bleeding in the right abdomen at the approximate level of anastomosis, possibly ileocolic anastomosis.
Tiny nonobstructing right renal calculus.
Colonoscopy 12/28/2024
Impression:
- Anal canal stenosis found on perianal exam.
- Blood in the entire examined ileum.
- Blood in the entire examined colon. Normal colonic mucosa without
inflammation.
- Stricture in the recto-sigmoid colon.
- Diverticulosis in the sigmoid colon.
MR [id number]
-Right lower quadrant short 3 cm segment of small bowel with active inflammation. Secondary luminal narrowing. Mild gaseous distention of small bowel, raising the possibility of an element of functional obstruction.
Discharge Plan
-
Patient Disposition: Home (Routine Discharge)
Discharge Diagnosis/Procedures: Rectal bleeding
History of Crohn's disease
Condition: Fair
Diet: Low Residue
Activity: As tolerated
Driving Restrictions: As prior to admission
Bathing Restrictions: OK to Shower
Blood Work: Repeat cbc in a week and forward results to PCP
Referrals:
PCP [Other] - in one to two weeks
Katlyn Barreto DO [Active, Gastroenterology] - in two to three weeks
Prescriptions:
New
melatonin 5 mg Tablet
5 mg PO HS 30 Days Qty: 30 0RF
Continued
cyanocobalamin (vitamin B-12) 1,000 mcg/mL Solution
1,000 mcg IM Q2W
Rx Instructions:
the 1st and 15th of each month
Discharge Orders:
Discharge Patient (As Directed); Ordered 12/30/24
Ordered By: Alyse Frank
Discharge Date and Time
Discharge Date/Time: 12/30/24 14:35
Print Language: LAO

Documented by User: Alyse Frank MD 12/30/24 15:45
Discharge Summary
Discharge Data
Date of Admission: 12/28/24
Date of Discharge: 12/30/24
Discharge Plan
-
Patient Disposition: Home (Routine Discharge)
Discharge Diagnosis/Procedures: Rectal bleeding
History of Crohn's disease
Condition: Fair
Diet: Low Residue
Activity: As tolerated
Driving Restrictions: As prior to admission
Bathing Restrictions: OK to Shower
Blood Work: Repeat cbc in a week and forward results to PCP
Referrals:
PCP [Other] - in one to two weeks
Katlyn Barreto DO [Active, Gastroenterology] - in two to three weeks
Prescriptions:
New
melatonin 5 mg Tablet
5 mg PO HS 30 Days Qty: 30 0RF
Continued
cyanocobalamin (vitamin B-12) 1,000 mcg/mL Solution
1,000 mcg IM Q2W
Rx Instructions:
the 1st and 15th of each month
Discharge Orders:
Discharge Patient (As Directed); Ordered 12/30/24
Ordered By: Alyse Frank
Discharge Date and Time
Discharge Date/Time: 12/30/24 14:35
Print Language: LAO
--- NOTE | 2024-12-30 11:55 | CON.CRS ---
Medical History
-
History of Present Illness:
Patient is a 49-year-old male with history of Crohn's disease (diagnosed 1992; underwent laparoscopic SBR in 2005 for retained video capsule; underwent open SBR, possible ileocolic resection, in 2021 at [place] for GI bleeding; underwent terminal
ileal stricture dilation 06/[address] Bauer; currently under the care of Dr. Barreto; has tried Remicade, Humira, Stelara and Skyrizi, all stopped due to issues with side effects; last colonoscopy 07/[address] Wu which was reported as normal up
to the known ileal stricture, which could not be traversed) who presents with rectal bleeding for 1 day. He underwent CTA, which showed active extravasation at site of what appears to be ileocolic anastomosis. He underwent colonoscopy the same
day, which showed clotted blood throughout the colon and up to the ileocolic anastomosis, but no active source of bleeding seen. He underwent MR E, which showed a 3 cm segment of small bowel stricture/inflammation in the RLQ he denied any issues
with nausea or vomiting. Today, he is passing flatus and is having soft BMs, not diarrhea, no further blood in the stool. He denies any abdominal pain.
Past Medical History
Past Medical History: Other (As above)
Past Surgical History: Other (Laparoscopic SBR 2005, open SBR, likely ileocolic resection 2021 at [place], shoulder surgery 2016, vasectomy 2022)
Social History
Tobacco: Non-Smoker
Alcohol: Occasional
Drug: Marijuana (Nightly)
Personal:
Living: With Family
Family History
Family History: Other (Family history of Crohn's and grandfather; family history of colon cancer in grandfather and grandmother)
Allergies / Home Medications
Allergy/AdvReac Type Severity Reaction Status Date / Time
aspirin Allergy doesn't Verified 12/28/24 08:51
take due
to Crohn's
Disease
infliximab (From Remicade) Allergy Anaphylaxis Verified 12/28/24 08:51
NSAIDS (Non-Steroidal Allergy Patient Verified 12/28/24 08:51
Anti-Inflamma states he
is able to
take
Advil,
Ibuprofen
Salicylates * Allergy doesn't Verified 12/28/24 08:51
take due
to Crohn's
Disease
�Medication �Instructions �Recorded �Confirmed �Type
cyanocobalamin (vitamin B-12) 1,000 mcg IM Q2W Supplement 12/26/21 12/28/24 History
1,000 mcg/mL injection solution
Review of Systems
-
A 10 point review of systems was completed, and was negative except as per HPI.
Physical Exam
Vital Signs
Temp 97.6 F 12/30/24 07:15
Pulse 80 12/30/24 07:15
Resp Rate 18 12/30/24 07:15
Blood pressure 124/78 12/30/24 07:15
SaO2 98 12/30/24 07:15
12/29/24 12/30/24 12/31/24
06:59 06:59 06:59
Actual Weight 60.691 kg
Body Mass Index (BMI) 21.0
Lab Results / Allergies
12/30/24 16:45
12/30/24 07:33
WBC 6.8 10^3/uL (4.8-10.8) 12/29/24 05:33
Hgb Cancelled 12/30/24 16:45
Hct Cancelled 12/30/24 16:45
Plt Count 207 10^3/uL (130-400) D 12/29/24 05:33
Abs Immat Gran (auto) 0.0 10^3/uL (0-0.05) 12/29/24 05:33
Neutrophils % 57.4 % (42.2-75.2) 12/29/24 05:33
Allergy/AdvReac Type Severity Reaction Status Date / Time
aspirin Allergy doesn't Verified 12/28/24 08:51
take due
to Crohn's
Disease
infliximab (From Remicade) Allergy Anaphylaxis Verified 12/28/24 08:51
NSAIDS (Non-Steroidal Allergy Patient Verified 12/28/24 08:51
Anti-Inflamma states he
is able to
take
Advil,
Ibuprofen
Salicylates * Allergy doesn't Verified 12/28/24 08:51
take due
to Crohn's
Disease
Physical Exam
General: Well Developed, Well Nourished and No Apparent Distress
HEENT: Normocephalic and Atraumatic
Respiratory: Non Labored Respirations
Cardiac: S1/S2
GI: Soft, Non Tender and Non Distended
Skin: Warm and Dry
Neuro: AO x 3
Data Reviewed
-
CT Scan: Image Personally Visualized and interpreted and Discussed with Physician (GI)
MRI: Report Reviewed by me
Labs: Labs Reviewed by me and Discussed with Patient
Assessment / Plan
-
49-year-old male with history of Crohn's disease (diagnosed 1993; underwent laparoscopic SBR in 2005 for retained video capsule; underwent open SBR, possible ileocolic resection, in 2021 at [place] for GI bleeding; underwent terminal ileal
stricture dilation 06/[address] Bauer; currently under the care of Dr. Barreto; has tried Remicade, Humira, Stelara and Skyrizi, all stopped due to issues with side effects; last colonoscopy 07/[address] Wu which was reported as normal up to the
known ileal stricture, which could not be traversed; he is not currently on any maintenance medications) who presents with rectal bleeding for 1 day. He underwent CTA, which showed active extravasation at site of what appears to be ileocolic
anastomosis. He underwent colonoscopy the same day, which showed clotted blood throughout the colon and up to the ileocolic anastomosis, but no active source of bleeding seen. He underwent MR E, which showed a 3 cm segment of small bowel
stricture/inflammation in the RLQ he denied any issues with nausea or vomiting.
AFVSS
Hb 10.5 from 9.2, CRP x3 negative
�GI bleeding in the setting of Crohn's disease
�Appears to have resolved; Hb stable
�Appreciate GI; it would be reasonable to start steroids in the setting of GI bleeding and inflammation seen on MRE; however, CRP has been normal and bleeding seems to have resolved; will defer to GI; discussed with Dr. Felder
�Terminal ileal stricture seen on MRE and colonoscopy
�Currently asymptomatic; discussed treatment options with patient; would encourage maintenance therapy to decrease the risk of this stricture from progressing; plan is to likely start Rinvoq
�Continue low residue diet; no contraindications to regular diet from my standpoint
�Appreciate hospitalist
Dispo�colorectal will sign off; please call for any questions or concerns; patient can follow-up with me as needed
[2024-12-30] MEDS: FLUZONE (6 mos+) 2025-2026 FORMULA 0.5 ML IM (14:02)
[2024-12-30 18:40] LABS: Hepatitis B Surface Antigen Negative (Negative)
[2024-12-30 18:58] LABS: Hepatitis C Antibody Negative (Negative)
[2025-01-03 17:56] LABS: Calprotectin, Fecal 320 ug/g (<=49)
== END 2024-12-30 14:35 | disposition home or self-care (01) | DRG 386 ==
LOC: 2 SOUTH 13:58
PROVIDERS: Internal Medicine Gastroenterology; Nurse Practitioner Adult Health; Physician Assistant; Surgery; ADMITTING PHYSICIAN General Practice; EMERGENCY PHYSICIAN Emergency Medicine
PROC: 0DJD8ZZ Inspection of Lower Intestinal Tract, Via Natural or Artificial Opening Endoscopic (ICD-10-PCS; 2024-12-28)
PROC: 3E02340 Introduction of Influenza Vaccine into Muscle, Percutaneous Approach (ICD-10-PCS; 2024-12-30)
DX: K50.011 Crohn's disease of small intestine with rectal bleeding (principal); D62 Acute posthemorrhagic anemia; K50.012 Crohn's disease of small intestine with intestinal obstruction; F12.90 Cannabis use, unspecified, uncomplicated; E53.8 Deficiency of other specified B group vitamins; K62.4 Stenosis of anus and rectum; K57.30 Diverticulosis of large intestine without perforation or abscess without bleeding; N20.0 Calculus of kidney; Z91.148 Patient's other noncompliance with medication regimen for other reason; Z79.899 Other long term (current) drug therapy; Z87.891 Personal history of nicotine dependence; Z23 Encounter for immunization
CPT/HCPCS: 71046; 72197; 74174; 74183; 80048; 80053; 80061; 81003; 82607; 82728; 83540; 83550; 83605; 83690; 83735; 83993; 85014; 85018; 85025; 85610; 85652; 85730; 86140; 86480; 86704; 86706; 86803; 86850; 86900; 86901; 87045; 87046; 87077; 87324; 87328; 87329; 87340; 87427; 87449; 89055; 90656; 96360; 99284; A9575; G0008; Q9967

== ENCOUNTER 2024-12-31 15:41 | Inpatient (IN) | payer OTHER, SELFPAY ==
[2024-12-31] VITALS (11 sets, daily range): BP systolic 85–140; BP diastolic 52–99; BMI 20.8; BMI 20.7
[2024-12-31 12:55] LABS: ALT (SGPT) 18 U/L (0-50); AST (SGOT) 25 U/L (17-59); Albumin 4.2 g/dl (3.5-5.0); Alkaline Phosphatase 67 U/L (38-126); Blood Urea Nitrogen 12 mg/dl (9-20); Calcium 9.1 mg/dl (8.4-10.2); Carbon Dioxide 22 mmol/L (22-30); Chloride 109 mmol/L (98-107); Glucose 112 mg/dl (70-99); Potassium 4.0 mmol/L (3.5-5.1); Sodium 140 mmol/L (135-145); Total Protein 6.9 g/dl (6.3-8.2); eGFR > 60.00
--- NOTE | 2024-12-31 14:09 | ED.GENMED ---
History of Present Illness
General
Chief Complaint: Abdominal Symptoms
Source: patient
Exam Limitations: none
Time Seen by Provider: 12/31/24 14:08
Nursing documentation reviewed up to this point in time: agreed with
History of Present Illness
History of Present Illness:
49-year-old male with history of crohn's disease, partial bowel obstructions, bowel resection 2005 and 2021, iron deficiency anemia, presents for black tarry, stools
Discharged yesterday: went home and had 'normal diet' food for first time in several days. Last night noted black, tarry stools, occurred again at midnight, and again this a.m.
He texted Dr. Cullen (his neighbor who also saw him during his hospitalization), sent him pictures of the stools this a.m. and instructed to come here for eval.
He has had significant fatigue, some TRAN, no syncope
Records reviewed: Admitted 12/28-12/30 for rectal bleeding, Normal ESR and CRP.
CTA showed active extravasation at the site of what appeared to be an ileocolic anastomosis. Colonoscopy same day with blood in the entire colon, normal colonic mucosa, no active bleed
GI ordered MR enterography showed RLQ 3 cm segment of small bowel with active inflammation. Secondary luminal narrowing.
At discharge was having no bloody stools.
Past History
Past History
ED Past Medical History: Other (crohn's disease, iron deficiency anemia. GI bleed)
ED Past Surgical History: Bowel resection and Orthopedic
Social History
Tobacco: Non-smoker
Alcohol: Occasional
Drug: Marijuana
Personal:
Living: with family
Employment: Employed
Family History
Family History: Other (Noncontributory)
Review of Systems
Review of Systems
Allergies reviewed?: Yes
All Other Systems: ROS reviewed and negative except as documented in HPI and ROS
Constitutional: Reports fatigue; Denies fever
Cardiac: Denies chest pain or syncope
ABD/GI: Reports abdominal pain ('mild' right side abdominal pain.) and black stools
Neurological: Denies dizzy
Phy Exam
Physical Exam
Physical Exam:
GENERAL: No acute distress. A&Ox3.
CONSTITUTIONAL: Afebrile.
EYES: clear, conjunctivae normal
ENMT: moist mucus membranes, Pharynx nl
RESPIRATORY: Regular respirations, nonlabored, lungs clear.
CARDIOVASCULAR: Regular rate and rhythm, no murmurs, no rubs.
GI: Soft, mild tenderness right upper abdomen, nondistended, normal BS
MUSCULOSKELETAL: Moves with ease. Well perfused.
SKIN: Warm, dry, pink
PSYCH: Normal mood and affect. Well kept, interactive and appropriate
NEUROLOGIC: Awake, alert and oriented. No focal neurological deficits
Course
Orders/Labs/Results
Orders:
Orders
12/31/24 12:15
C-Reactive Protein Urgent
Comment: ADDON
Comprehensive Metabolic Panel Urgent
12/31/24 14:33
Type+Screen Urgent
Complete Blood Count/With Diff Urgent
Erythrocyte Sed Rate Urgent
Comment: ADDON
12/31/24 Dinner
Clear Liquid
At Your Request: Full Participation
12/31/24 15:24
Admit/Transfer Patient As Directed
Co-Sign Provider:
Level of Care: Inpatient admission
Assign to:: Medical/Surgical
Physician / Group: Hospitalists
Diagnosis: Rectal bleeding
Reason for Hospitalization: Rectal bleeding
Expected length of stay greater than two midnights?: Yes
ELOS- Estimated Length of Stay in days: 3
I certify the patient meets the requirements for IP care: Yes
PRN Pain Medication Management As Directed
May give lesser potent ordered pain med per pt: Yes
preference::
Protocol:: Medication orders for pain may be administered in a
manner that supports deferring to patient preference
when the pt is:
- Requesting an ordered lesser potent pain medication.
Least to most potent pain medications are defined
as: acetaminophen < NSAID < tramadol < opioids
(morphine, oxycodone, hydromorphone).
- Requesting a lesser dose of the same medication IF
ORDERED.
- Requesting a less intrusive route of administration
if both routes are prescribed by the provider (PO <
IV).
12/31/24 15:25
Code Status As Directed
Resuscitation Status: Full Code
12/31/24 15:31
Consult Gastroenterology [GASTROINTESTINAL CONSULT] Routine
Consulting Provider: Linda Clemens
Was physician already notified: Yes
12/31/24 17:29
Acetaminophen [Tylenol] 650 mg PO Q4HPRN PRN
Bisacodyl [Dulcolax] 10 mg RECTAL I10GADE PRN
Polyethylene Glycol Powder [Miralax] 17 grams PO DAILYPRN PRN
12/31/24 17:29
Add On- LAB Routine
Tests Added?: CRP,ESR
Activity As Directed
Activity Level: As Tolerated
Activity As Directed
Activity Level: As Tolerated
INT (Intravenous Needle Therapy) As Directed
Comment: Place 2 IV catheters of the largest bore possible until stable
Orthostatic Vital Signs As Directed
Orthostatic VS Frequency: Now
Comment: then every four hours for twenty-four hours
Pneumatic Compression Sleeves As Directed
Type: Knee high
Vital Signs As Directed
Frequency: Per unit guidelines
Vital Signs As Directed
Frequency: Per unit guidelines
Pulse Ox/spot Check [RESP] Routine
Quantity: 1
DX Deep Vein Thrombosis Video Routine
12/31/24 20:00
Pantoprazole [Protonix] 40 mg PO BID
01/01/25 04:38
Basic Metabolic Panel IN AM
Complete Blood Count/With Diff IN AM
Magnesium IN AM
PTT IN AM
Prothrombin Time IN AM
01/02/25 06:00
Basic Metabolic Panel IN AM
Complete Blood Count/With Diff IN AM
Magnesium IN AM
01/03/25 06:00
Basic Metabolic Panel IN AM
Complete Blood Count/With Diff IN AM
Magnesium IN AM
01/15/25 08:00
Cyanocobalamin 1,000 mcg IM Q14D
Abnormal Lab Results
12/31/24 12/31/24
12:15 14:33
RBC 3.07 L 10^6/uL
(4.70-6.10)
Hgb 9.3 L g/dL
(13.0-18.0)
Hct 26.5 L %
(39.0-52.0)
Absolute Monos (auto) 0.8 H 10^3/uL
(0.1-0.6)
Lymphocytes % 19.5 L %
(20.5-51.1)
ESR 22 H mm/hour
(0-20)
Chloride 109 H mmol/L
(98-107)
Glucose 112 H mg/dl
(70-99)
Crossmatch IS Only See Detail
12/31/24 14:33
12/31/24 12:15
Vital Signs
Initial and Last Documented VS:
Initial Vital Signs
Temp Resp BP
97.6 F 20 140/99
12/31/24 11:50 12/31/24 11:50 12/31/24 11:50
Last Documented Vital Signs
Temp Pulse Resp BP Pulse Ox
97.7 F 90 13 83/67 93
01/01/25 15:28 01/01/25 14:00 01/01/25 14:00 01/01/25 14:00 01/01/25 14:00
Search Director consulted with Physician
Search Director consulted with physician?: Yes
Name of Physician Consulted: Blue
MDM/Problems Addressed
Differential Diagnosis Includes:
GI bleed
MDM/Problems Addressed:
49-year-old male with history of crohn's disease, partial bowel obstructions, bowel resection 2005 and 2021, iron deficiency anemia, presents for black tarry, stools
Discharged yesterday: went home and had 'normal diet' food for first time in several days. Last night noted black, tarry stools, occurred again at midnight, and again this a.m.
He texted Dr. Cullen (his neighbor who also saw him during his hospitalization), sent him pictures of the stools this a.m. and instructed to come here for eval.
He has had significant fatigue, TRAN
Records reviewed: Admitted 12/28-12/30 for rectal bleeding, Normal ESR and CRP.
CTA showed active extravasation at the site of what appeared to be an ileocolic anastomosis. Colonoscopy same day with blood in the entire colon, normal colonic mucosa, no active bleed
GI ordered MR enterography showed RLQ 3 cm segment of small bowel with active inflammation. Secondary luminal narrowing.
At discharge was having no bloody stools.
Hgb 9.3 (was 9.2 yesterday)
Dr. Cullen in and request pt be admitted
Hospitalist notified of admission
Pt is stable.
4:00 p.m.
Anne-Marie BYERS [employer]PER[employer] SPECIALIST in.
*Pulse Oximetry
SaO2: 100
Patient hypoxic: no
*Critical Care Note
Total Time (30-74mins, 75-104mins- exclusive of procedures): Not Applicable
ED Attending Note
-
Portions of this chart may have been created with voice recognition software.� Occasional wrong word or��sound alike� substitutions may have occurred due to the inherent limitations of voice recognition software.
Discharge Plan
Departure
Patient Disposition: Admit
Date of Disposition: 12/31/24
Time of Disposition: 15:08
Admit to: Med/Surg
Presentation/result/management discussed w/ accepting MD/DO: Hospitalist
Condition: Good
Discharge Problem:
GI (gastrointestinal bleed)
Interventions
Interventions:
*Risk Screen - Suicide Last Done: 12/31/24 17:36
*General Assessment Last Done: 12/31/24 11:52
*Neglect/Abuse Screening Last Done: 12/31/24 11:52
*ED- Fall Risk Assessment Last Done: 12/31/24 11:52
*ED COVID-19 Vaccine History Last Done: 12/31/24 11:52
*ED Influenza Vaccine History Last Done: 12/31/24 11:52
*Nursing Disposition Last Done: 12/31/24 17:30
AX-Iqzqho-Rjtqliegtm Assessment Last Done: 12/31/24 14:40
Discharge Date and Time
Discharge Date/Time: 12/31/24 17:30
[2024-12-31 14:45] LABS: Hematocrit 26.5 % (39.0-52.0); Hemoglobin 9.3 g/dL (13.0-18.0); Mean Corp Hgb Conc. 35.1 g/dL (33.0-37.0); Mean Corpuscular Volume 86.3 fL (80.0-94.0); Nucleated Red Blood Cells % 0 % (-); Platelet Count 217 10^3/uL (130-400); Red Cell Dist. Width 12.8 % (11.5-14.5)
--- NOTE | 2024-12-31 15:48 | HPS.HSE ---
Addendum entered and electronically signed by Alyse Frank MD 01/01/25 09:48:
Attending�addendum: Patient was seen on 12/31/2024.
I saw and evaluated the patient. I reviewed the resident�s note and agree with findings and plan as documented in the resident�s note. Patient was recently discharged from the hospital with lower GI bleeding, underwent colonoscopy which shows
blood-filled colon, bleeding stopped and advised to follow-up with GI as outpatient for repeat colonoscopy in January 21.
Patient went home and developed recurrent bloody bowel movement, came initially to outpatient lab to do CBC but because of frequency of bloody bowel movement and being symptomatic, decision made to go to the ER where he found to have drop in
hemoglobin and patient admitted to the hospital .
patient seen and examined at bedside, denies any chest pain, admits some mild dyspnea on exertion, lightheaded, mild colicly abdominal pain, no nausea, no vomiting, no diarrhea or constipation.
Physical�exam:
GENERAL : Patient is awake, alert, oriented x3
HEENT: Nonicteric sclerae, PERRLA, EOMI. Oropharynx clear. Moist mucous membranes. Conjunctivae appear well perfused.
CHEST: Chest wall is nontender.
HEART: Regular rate and rhythm without murmurs.
LUNGS: Clear to auscultation bilaterally.
ABDOMEN: Soft, positive bowel sounds, nontender, no organomegaly.
RECTAL: Deferred.
MUSCLES/EXTREMITIES: No abnormal range of motion, no swelling.SKIN: No rash, no excessive bruising, petechiae, or purpura.
NEUROLOGIC: Cranial nerves II-XII intact without motor/sensory deficit.
�
Assessment/plan:
Lower GI bleeding.
Clear liquid diet.
GI consulted.
Plan to transfer to [facility] once available
Acute blood loss anemia
Symptomatic anemia
Status post blood transfusion
Vitamin B12 deficiency.
Continue vitamin B12
CODE STATUS: Full code
DVT prophylaxis: SCDS
Diet: CLD
Family communication: Discussed with at bedside
Disposition: Transfer to [facility] once bed available
�
Total time spent on today�s encounter was 75 minutes which included time spent in counseling the patient/family regarding diagnosis and treatment plan as listed above, goals of care, and symptom management. Case was discussed with nursing staff,
specialists, and care coordinators/case management. All labs and imaging personally reviewed by me. Remainder the time spent in detailed review of previous records, lab data, imaging, and other medical provider documentation.
Original Note:
Family Physician
-
Family Physician: NOT KNOW UNKNOWN - PT DOES
Chief Complaint
-
Rectal bleeding
History of Present Illness
Patient is a 49 years old male with past medical history of Crohn's disease, diagnosed in 1992. He required a small bowel resection in 2005 as he was not on any medications. He has been on multiple medications since then including mesalamine
agents, steroids, Remicade which she did not tolerate well and was then switched to Humira and Stelara. In 2021, he had leakage of anastomosis, presented with recurrent rectal bleed to [place] and had eventual small bowel resection with a noted
tight stricture in proximal ileum/distal jejunum.
He was recently discharged from the hospital on 12/30/2024, s/p colonoscopy and MNR enterography. On colonoscopy there was lots of blood throughout the colon and ileum. MR enterography showed 3 cm small bowel segment with active signs of
inflammation, along with gaseous dilatation suggestive of functional obstruction. He did not have any further bowel movements with blood and his hemoglobin was stable so he was discharged and was advised to follow-up on outpatient basis to start
biological agents for Crohn's disease.
Yesterday tolerated the low residue diet well but last night he had again multiple episodes of blood in stools. He started feeling very tired, weak and dizzy and he came to the ER. On rechecking H&H his hemoglobin has dropped by more than 1 g
He reports pain in right upper and lower quadrant, denies any nausea, vomiting, fevers, chills, constipation, headaches or any other complaints.
He is vitally stable and is being admitted for further evaluation of rectal bleeding and monitoring of H&H.
Medical History
Past Medical History
Past Medical History: Reports Other (Crohn's disease, gastritis, vitamin B12 deficiency,Chronic anemia)
Past Surgical History: Reports Other (Reports Bowel Resection (2005 and 2021), Orthopedic (Shoulder surgery) and Urological (Vasectomy))
Social History
Tobacco: Non-smoker
Alcohol: Occasional
Drug: Marijuana
Personal:
Living: With Family
Employment: Employed
Family History
Family History: Other (History of Crohn's disease (grandfather )and colon cancer(grandfather and grandmother)))
Allergies / Home Medications
Allergies reflects when Allergies were last updated in [facility].
Home Medications with original date entered in [facility]
Allergy/Medication List:
Allergies
Allergy/AdvReac Type Severity Reaction Status Date / Time
aspirin Allergy doesn't Verified 12/28/24 08:51
take due
to Crohn's
Disease
infliximab (From Remicade) Allergy Anaphylaxis Verified 12/28/24 08:51
NSAIDS (Non-Steroidal Allergy Patient Verified 12/28/24 08:51
Anti-Inflamma states he
is able to
take
Advil,
Ibuprofen
Salicylates * Allergy doesn't Verified 12/28/24 08:51
take due
to Crohn's
Disease
Home Medications
cyanocobalamin (vitamin B-12) 1,000 mcg/mL injection solution 1,000 mcg IM Q2W Supplement 12/26/21
Complete blood Count #1 ea 12/31/24
Review of Systems
-
Constitutional: Reports Fatigue
Abdomen/GI: Reports Abdominal Pain and Bloody Stools
Physical Exam
Vital Signs
Vital Signs
Temp Pulse Resp BP Pulse Ox
97.6 F 80 16 116/89 100
12/31/24 11:50 12/31/24 14:32 12/31/24 14:32 12/31/24 14:30 12/31/24 14:39
Physical Exam
General: Well Developed, Well Nourished and No Apparent Distress
HEENT: Moist mucous membranes and [place] Conjunctivae
Respiratory: Clear; No Wheezes, Rales or Rhonchi
Cardiac: S1/S2 and Regular Rhythm
GI: Soft, Normal Bowel Sounds and Tender (In right upper quadrant)
Musculoskeletal: No Clubbing, No Cyanosis and No Edema
Skin: Warm and Dry
Neuro: Awake, AO x 3 and Nonfocal/grossly intact
Psych: Calm
Laboratory Results
-
12/31/24 14:33
12/31/24 12:15
Laboratory Results
Total Bilirubin 0.5 mg/dl (0.2-1.3) 12/31/24 12:15
AST 25 U/L (17-59) 12/31/24 12:15
ALT 18 U/L (0-50) 12/31/24 12:15
Alkaline Phosphatase 67 U/L (38-126) 12/31/24 12:15
Impression/Plan
-
IMPRESSION:
49-year-old male with past medical history significant for Crohn's disease s/p bowel resection in 2005 and 2021. Tried multiple medications in the past, medication noncompliance and not using any medications right now.
Recently discharged from the hospital on 12/30/2024, s/p colonoscopy and MR enterography
Abdominal CT/pelvis 12/28/2024
IMPRESSION:
Small focus of active intestinal bleeding in the right abdomen at the approximate level of anastomosis, possibly ileocolic anastomosis.
Tiny nonobstructing right renal calculus.
Colonoscopy 12/28/2024
Impression:
- Anal canal stenosis found on perianal exam.
- Blood in the entire examined ileum.
- Blood in the entire examined colon. Normal colonic mucosa without
inflammation.
- Stricture in the recto-sigmoid colon.
- Diverticulosis in the sigmoid colon.
MR [id number]
-Right lower quadrant short 3 cm segment of small bowel with active inflammation. Secondary luminal narrowing. Mild gaseous distention of small bowel, raising the possibility of an element of functional obstruction.
PLAN:
Bright red bleeding per rectum
Clear liquid diet
Monitor H&H every 6 hours
Check inflammatory markers ESR and CRP
Avoid blood thinners and NSAIDs
Hepatitis viral serology came back negative
GI consult
Vitamin B12 deficiency.
Continue with vitamin B12 injection
Acute blood loss anemia.
Monitor hemoglobin- now stable.
CODE STATUS: Full code
DVT prophylaxis: SCDs
Diet: Clear liquid diet
--- NOTE | 2024-12-31 16:12 | CON.GI ---
Addendum entered and electronically signed by Linda Clemens DO 12/31/24 17:44:
The patient was seen and examined by me independently in collaboration with the nurse practitioner.
Past medical history/social history/medications/allergies/family history reviewed.
Lab data and imaging data reviewed.
Duke Fenton is a 49 y.o. male with past medical history of small bowel crohns c/b TI stricture and multiple small bowel bleeds requiring SB resection x2 (2005, 2021 at [facility]) admitted with recurrent hematochezia. He was discharged yesterday after
presenting on Friday with GI bleeding, hemoglobin dropped from hgb 13.2 --> 9.2. He had a positive CTA showing active extravasation at the ileocolonic anastamosis. He susbsequently underwent a colonsocopy with Dr. Dangelo on 12/28, blood noted
throughout the colon and neoileum, unable to advanced more than 5 cm with clotted blood, anal stenosis, stricture in rectosigmoid colon. There was no evidence of an ileocolonic anastamosis. Upon further extensive chart review, multiple similar
presentations of small bowel bleeding, difficulty completing colonoscopies and even failed DBE at [facility], leading to his 2nd small bowel surgery.. He had a VCE get stuck at ileal stricture in 2005, leading to his first surgery. Repeat Hgb on current
admission is 9.3, down from 10.5 yesterday on d/c.
I highly suspect distal jejunum or more proximal ileal small bowel bleed, which we will be unable to reach, endoscopically. In order to avoid another surgery, the best course of action would be a repeat attempt at a double balloon enteroscopy, which
we unfortunately do not perform here. We discussed options for transfer to [facility] or [facility], the 3 nearby institutions that do offer this procedure. Given it is the weekend and no bowel movements since this morning, we will watch him over the
next 24 hours and see if his bleeding stops.
He follows with Dr. Barreto as an outpatient, the plan was to reattempt colonoscopy on 01/21, hoping to have better visualization ocne the bleeding had stopped as well as iniating treatment iwth Rinvoq. MRE on 12/29 shows short 3 cm segment of SB with
active inflammation, secondary luminal narrowing. Mild gaseous distension of SB, raising the possibility of an element of functional obstruciton.
Original Note:
Consultation
-
Date/Time Consultation Requested: 12/31/24 1530
Date/Time Consultation Performed: 12/31/24 1600
Requesting Provider: Monique Fu MD
Performing Provider: NICA Black, Sachi Clemens DO
Reason for Consultation: GI bleeding
Medical History
Chief Complaint / HPI
Chief Complaint: rectal bleeding
History of Present Illness:
Pt is a 49yo presents with hx B12 deficiency, Crohn's disease since 1992. He has hx SB resection in 2005 after 14 years without medications. He recall hx capsule that was stuck at that time. He has been on multiple medication including Mesalamine
agents, steroids, Remicade with reaction with restart of medication. He then went on Humira and Stelara. In review of [facility] records in 2021 he had GI bleeding with colonoscopy with unsuccessful dilation to TI stricture and had intra-op
enteroscopy with active bleeding proximal ileum/distal jejunum stricture. Rest of small bowel unremarkable. He then had SB resection of proximal ileum/distal jejunum and TI with active Crohns on path. At that time started on Skyrizi. His last
follow up in [address] Barreto and has not restarted medication and encouraged to restart for concern for recurrence. He was also recommended colonoscopy but did not proceed. He now presents with onset of rectal bleeding several days ago with
admission 12/28 -12/30 after 2 course of antibiotic therapy for sinus infections and began 12/27 rectal bleeding. During admission hbg 13.2 down to 9.2. CTA with + for bleeding at level of anastomosis with IR unable to do intervention. He
completed colonoscopy with anal stenosis, stricture rectosigmoid with need for ped scope, tracy ileum clotted of blood and unable to go beyond 5 cm with clotted blood in entire colon and diverticulosis. His bleeding improved and pt was discharged but
now returns with recurrent bleeding. hbg 9.3 on return.
Pt otherwise admits to mild nausea and minimal lower abdominal pain. He otherwise denies dysphagia, odynophagia, GERD, constipation. Pt was due follow up with Dr. Barreto and repeat colonoscopy.
12/31/24 CT Abd/pelvis Angio W/wo Iv Small focus of active intestinal bleeding in the right abdomen at the approximate level of anastomosis, possibly ileocolic anastomosis. Tiny nonobstructing right renal calculus.
12/29/24 MR Enterography Right lower quadrant short 3 cm segment of small bowel with active inflammation. Secondary luminal narrowing. Mild gaseous distention of small bowel, raising the possibility of an element of functional obstruction.
12/28/24 colonoscopy - Anal canal stenosis found on perianal exam.- Stricture in the recto-sigmoid colon - Blood in the entire examined ileum.- Diverticulosis in the sigmoid colon.
- Blood in the entire examined colon. Normal colonic mucosa without inflammation- No specimens collected
08/09/21-EGD� - Normal esophagus� - Gastritis. Biopsied - Normal examined duodenum. Biopsied. neg
08/09/21 colonoscopy - Ahmad The entire examined colon is normal - Stricture in the terminal ileum.
Past Medical History
Past Medical History: Other (crohn's disease, prior GI bleeding, B12 deficiency, anemia , GI bleed with admission 12/28/24)
Past Surgical History: Bowel Resection (2005 and 2021 and hx prior anastomosis dilation), Orthopedic (shoulder surgery ) and Urological (vastectomy)
Social History
Tobacco: Non-Smoker
Alcohol: Occasional
Drug: Marijuana
Personal:
Living: With Family
Employment: Employed
Family History
Family History: Other (grandfather with crohns, other grandfather and grandmother with colon CA )
Allergies / Home Medications
Allergy/AdvReac Type Severity Reaction Status Date / Time
aspirin Allergy doesn't Verified 12/28/24 08:51
take due
to Crohn's
Disease
infliximab (From Remicade) Allergy Anaphylaxis Verified 12/28/24 08:51
NSAIDS (Non-Steroidal Allergy Patient Verified 12/28/24 08:51
Anti-Inflamma states he
is able to
take
Advil,
Ibuprofen
Salicylates * Allergy doesn't Verified 12/28/24 08:51
take due
to Crohn's
Disease
�Medication �Instructions �Recorded
cyanocobalamin (vitamin B-12) 1,000 mcg IM Q2W Supplement 12/26/21
1,000 mcg/mL injection solution
Complete blood Count #1 ea 12/31/24
Review of Systems
-
History Source: Patient
Constitutional: Reports No Symptoms
EENT: Reports Other (recent sinus infectious with 2 course of antibiotics )
Respiratory: Reports No Symptoms
Cardiac: Reports No Symptoms
Abdomen/GI: Reports Abdominal Pain, Nausea, Bloody Stools and Black Stools
: Reports No Symptoms
Skin: Reports No Symptoms
Neurological: Reports No Symptoms
Endocrine: Reports No Symptoms
Hematologic/Lymphatic: Reports No Symptoms
Vital Signs
Temp Pulse Resp BP Pulse Ox
97.6 F 79 17 125/79 100
12/31/24 11:50 12/31/24 15:00 12/31/24 15:00 12/31/24 15:00 12/31/24 15:00
Physical Exam
Exam
General: Well Developed, Well Nourished and No Apparent Distress
HEENT: Normocephalic and Anicteric
Respiratory: Clear
Cardiac: Regular Rhythm
GI: Soft, Non Tender and Non Distended
Rectal: Other (note several red and black stools)
Musculoskeletal: No Clubbing and No Cyanosis
Skin: Dry
Neuro: Awake, Alert and AO x 3
Psych: Calm
Results
WBC 8.9 10^3/uL (4.8-10.8) 12/31/24 14:33
Hgb 9.3 g/dL (13.0-18.0) L 12/31/24 14:33
Hct 26.5 % (39.0-52.0) L 12/31/24 14:33
MCV 86.3 fL (80.0-94.0) 12/31/24 14:33
Plt Count 217 10^3/uL (130-400) 12/31/24 14:33
Absolute Neuts (auto) 6.2 10^3/uL (1.4-6.5) 12/31/24 14:33
Sodium 140 mmol/L (135-145) 12/31/24 12:15
Potassium 4.0 mmol/L (3.5-5.1) 12/31/24 12:15
Chloride 109 mmol/L (98-107) H 12/31/24 12:15
Carbon Dioxide 22 mmol/L (22-30) 12/31/24 12:15
BUN 12 mg/dl (9-20) 12/31/24 12:15
Creatinine 0.7 mg/dL (0.7-1.3) 12/31/24 12:15
Calcium 9.1 mg/dl (8.4-10.2) 12/31/24 12:15
Total Bilirubin 0.5 mg/dl (0.2-1.3) 12/31/24 12:15
AST 25 U/L (17-59) 12/31/24 12:15
ALT 18 U/L (0-50) 12/31/24 12:15
Alkaline Phosphatase 67 U/L (38-126) 12/31/24 12:15
Diagnostic Image Results:
12/31/24 CT Abd/pelvis Angio W/wo Iv Small focus of active intestinal bleeding in the right abdomen at the approximate level of anastomosis, possibly ileocolic anastomosis. Tiny nonobstructing right renal calculus.
12/29/24 MR Enterography Right lower quadrant short 3 cm segment of small bowel with active inflammation. Secondary luminal narrowing. Mild gaseous distention of small bowel, raising the possibility of an element of functional obstruction.
12/28/24 colonoscopy - Anal canal stenosis found on perianal exam.- Stricture in the recto-sigmoid colon - Blood in the entire examined ileum.- Diverticulosis in the sigmoid colon.
- Blood in the entire examined colon. Normal colonic mucosa without inflammation- No specimens collected
08/09/21-EGD� - Normal esophagus� - Gastritis. Biopsied - Normal examined duodenum. Biopsied. neg
08/09/21 colonoscopy - Ahmad The entire examined colon is normal - Stricture in the terminal ileum.
Assessment / Plan
-
Pt is a 49yo presents with hx B12 deficiency, Crohn's disease since 1992. He has hx SB resection in 2005 after 14 years without medications. He recall hx capsule that was stuck at that time. He has been on multiple medication including Mesalamine
agents, steroids, Remicade with reaction with restart of medication. He then went on Humira and Stelara. In review of [facility] records in 2021 he had GI bleeding with colonoscopy with unsuccessful dilation to TI stricture and had intra-op
enteroscopy with active bleeding proximal ileum/distal jejunum stricture. Rest of small bowel unremarkable. He then had SB resection of proximal ileum/distal jejunum and TI with active Crohns on path. At that time started on Skyrizi. His last
follow up in [address] Barreto and has not restarted medication and encouraged to restart for concern for recurrence. He was also recommended colonoscopy but did not proceed. He now presents with onset of rectal bleeding several days ago with
admission 12/28 -12/30 after 2 course of antibiotic therapy for sinus infections and began 12/27 rectal bleeding. During admission hbg 13.2 down to 9.2. CTA with + for bleeding at level of anastomosis with IR unable to do intervention. He
completed colonoscopy with anal stenosis, stricture rectosigmoid with need for ped scope, tracy ileum clotted of blood and unable to go beyond 5 cm with clotted blood in entire colon and diverticulosis. His bleeding improved and pt was discharged but
now returns with recurrent bleeding. hbg 9.3 on return. last admit CRP <5, ESR 8, fecal yogesh pending. hepatitis neg, TB pending. Pt was due follow up with Dr. Barreto and repeat colonoscopy.
-rectal bleeding with recurrent admission
-symptomatic anemia
-recent + CTA as ileocolonic anastomosis
- hx Crohns with prior anatomic dilation and SB resection 2005 and 2021 with tight stricture proximal ileum/distal jejunal
-hx B12 deficiency and prior anemia
-recent sinusitis with abx x 2
-hx shoulder surgery
-medical non compliance as currently off Crohns therapy
PLAN;
pt with recurrent admission with continued bleeding and significant drop in hbg last admission but did not require transfusion
difficulty situation with patient with SB bleeding
unable to embolize per IR
attempt of colonoscopy limited to get to bleeding as location in small bowel and stricturing disease
pt had stuck capsule in 2005- would not attempt again with stricturing disease
options are watch and transfuse, surgical intervention as noted in past vs consider caitlin tx and double balloon--
for now trend hbg, transfuse as needed
clear diet
if continue bleeding reconsult surgery-- has been seen last admission
consider transfer
OP follow up with Dr. Barreto and will need biologic therapy and plan was OP colon when bleeding improved
hepatitis neg, TB, pending, fecal yogesh pending
reviewed with Dr. Frank
-
-
Thank you for consultation and allowing me to participate in the patient's care. Please call the furniture rental consultant GI physician during the after hours with any questions or concerns.
--- NOTE | 2024-12-31 16:53 | EDCM ---
Chart reviewed and spoke with patient at ED bedside
Discharged from [facility] 12/30
Lives in a 2 story home with and 2 kids. 2STE Independent with ADLs
no DME
PCP Jerson Velez
RX plan yes
Pharmacy [facility]
no use of VN nor SNF
CM will continue to follow up with any DCP needs
--- NOTE | 2024-12-31 17:56 | PTCARENOTE ---
pt presents from ED via stretcher. pt is AAO*3, Vss, room air. pt c/o sob pulse ox 100% on room air. pt states tenderness to RUQ. pt it oriented to the room. call wagoner within the reach.
[2024-12-31 18:17] LABS: Hematocrit 25.6 % (39.0-52.0); Hemoglobin 9.0 g/dL (13.0-18.0)
[2024-12-31 18:30] LABS: Glucose - Point of Care 99 mg/dl (70-99)
[2024-12-31 18:34] LABS: C-Reactive Protein < 5.00 mg/L (0.0-10.00)
--- NOTE | 2024-12-31 18:49 | RR ---
A Rapid Response was called on this patient, please see Rapid Response form.
--- NOTE | 2024-12-31 18:50 | PTCARENOTE ---
Addendum entered by Nelia Corona RN 12/31/24 19:19:
pt to transfer to ICU as per CRYSTAL LAPPER.
Original Note:
pt sweaty & clammy, states, 'feels like I am going to pass out.' Blood sugar 99, BP 127/82 HR 87, pulse ox 99% on room air. c/o sob. his hgb 1730 is 9.0. MD. notified. Rapid response called. Bolus fluid given as per GI. Pt states feeling slightly
better w/ fluids. COMMERCIAL PROPERTY MANAGER at the bedside at this time.
[2024-12-31] MEDS: NSS 1000 IV (19:17)
--- NOTE | 2024-12-31 19:32 | PTCARENOTE ---
pt transferred to ICU. Report given to JHONY Sumner.
--- NOTE | 2024-12-31 19:33 | PTCARENOTE ---
pt Transferred to ICU. Report given to JOHNY Sumner.
--- NOTE | 2024-12-31 20:00 | PTCARENOTE ---
Received pt. from 4th floor. Pt. awake, alert, and oriented. Denies pain/discomfort at the moment. Afebrile. Heart rhythm sinus. Blood pressure normotensive. On room air, lungs sound clear. Clear liquid diet. No bloody stools at the moment. Voiding
in urinal without issue. Skin as documented. Vital signs stable at this time.
[2024-12-31] MEDS: PROTONIX 40 MG PO (20:35)
[2024-12-31 23:51] LABS: Hematocrit 22.3 % (39.0-52.0); Hemoglobin 7.8 g/dL (13.0-18.0)
[2025-01-01] VITALS (33 sets, daily range): BP systolic 83–135; BP diastolic 67–101; BMI 20.5
[2025-01-01] MEDS: MELATONIN 5 MG PO ×2 (00:14→21:03)
--- NOTE | 2025-01-01 03:28 | W.PN.UPDATE ---
Update Note
Progress Note Update
Rapid response called ~ 18:30
Pt w/sense of impending doom, diaphoretic, cool, pt stated 'feels like I am going to pass out'. Vital signs stable, blood glucose 99. Pt stated he felt this way when he had a major GI bleed and had to have an emergent transfer to ICU and blood
administered w/massive transfusion protocol. Patient stated he had not had a bowel movement since 10 am and feels like he has to have one but is concerned it might be a bleed. Due to hx and dropping Hgb, transferred to IMU level care for closer
monitoring overnight.
[2025-01-01 05:05] LABS: Hematocrit 28.6 % (39.0-52.0); Hemoglobin 9.8 g/dL (13.0-18.0); Mean Corp Hgb Conc. 34.3 g/dL (33.0-37.0); Mean Corpuscular Volume 84.9 fL (80.0-94.0); Nucleated Red Blood Cells % 0 % (-); Platelet Count 208 10^3/uL (130-400); Red Cell Dist. Width 13.2 % (11.5-14.5)
[2025-01-01 05:10] LABS: APTT 30.5 Sec (23.4-35.0); INR 1.09; PT 14.4 Sec (11.4-14.6)
--- NOTE | 2025-01-01 05:19 | W.PN.UPDATE ---
Update Note
Progress Note Update
Patient's hgb dropped from 9.0 to 7.8. Upon assessment, patient reports SOB, increased fatigues and lightheaded. Rx 1U PRBC, continue to trend H&H
[2025-01-01 05:26] LABS: Blood Urea Nitrogen 9 mg/dl (9-20); Calcium 8.7 mg/dl (8.4-10.2); Carbon Dioxide 25 mmol/L (22-30); Chloride 108 mmol/L (98-107); Estimated Creatinine Clearance 105 ml/min; Glucose 92 mg/dl (70-99); Magnesium 1.8 mg/dl (1.6-2.3); Potassium 4.2 mmol/L (3.5-5.1); Sodium 139 mmol/L (135-145); eGFR > 60.00
[2025-01-01] MEDS: PROTONIX 40 MG PO ×2 (07:44→19:48)
--- NOTE | 2025-01-01 08:00 | PTCARENOTE ---
pt received at change of shift from previous RN. Pt AAOX3. pt denies pain. SR on telemetry heart rate in 70s. pulses palpable. no edema. pt on room air. lung sounds clear. active bowel sounds, no BMs noted since yesterday AM. voiding in bathroom.
see worklist for full nursing assessment and interventions. pt updated on plan of care.
--- NOTE | 2025-01-01 10:29 | W.PN.GI.CBS2 ---
Today's Communication / Plan
-
Accepted as transfer to [facility]
Assessment / Plan
-
12/31/24 CT Abd/pelvis Angio W/wo Iv Small focus of active intestinal bleeding in the right abdomen at the approximate level of anastomosis, possibly ileocolic anastomosis. Tiny nonobstructing right renal calculus.
12/29/24 MR Enterography Right lower quadrant short 3 cm segment of small bowel with active inflammation. Secondary luminal narrowing. Mild gaseous distention of small bowel, raising the possibility of an element of functional obstruction.
12/28/24 colonoscopy - Anal canal stenosis found on perianal exam.- Stricture in the recto-sigmoid colon - Blood in the entire examined ileum.- Diverticulosis in the sigmoid colon.
- Blood in the entire examined colon. Normal colonic mucosa without inflammation- No specimens collected
08/09/21-EGD� - Normal esophagus� - Gastritis. Biopsied - Normal examined duodenum. Biopsied. neg
08/09/21 colonoscopy - Ahmad The entire examined colon is normal - Stricture in the terminal ileum.
Duke Fenton is a 49 y.o. male with past medical history of small bowel crohns c/b TI stricture and multiple small bowel bleeds requiring SB resection x2 (2005, 2021 at [facility]) admitted with recurrent hematochezia. He was discharged yesterday after
presenting on Friday with GI bleeding, hemoglobin dropped from hgb 13.2 --> 9.2. He had a positive CTA showing active extravasation at the ileocolonic anastamosis. He susbsequently underwent a colonsocopy with Dr. Dangelo on 12/28, blood noted
throughout the colon and neoileum, unable to advanced more than 5 cm with clotted blood, anal stenosis, stricture in rectosigmoid colon. There was no evidence of an ileocolonic anastamosis. Upon further extensive chart review, multiple similar
presentations of small bowel bleeding, difficulty completing colonoscopies and even failed DBE at [facility], leading to his 2nd small bowel surgery.. He had a VCE get stuck at ileal stricture in 2005, leading to his first surgery. Repeat Hgb on current
admission is 9.3--> 0 --> 7.8 after STUDENT SERVICES ADVISOR, however, no bloody BM since arrival. He was transfused with 1 unit of PRBC last night, repeat hgb with overcorrection to 9.8. It is difficult to interpret if the 7.8 hgb was real, especially given no BM.
It is very clear that he is having ongoing GI bleeding, with high suspicion for recurrent small bowel source. Either distal jejunum or more proximal ileum. Discussed case with Dr. Frank Ngo at [facility], who is in agreement that patient would
benefit from transfer for possible DBE in attempt to localize and treat his bleeding.
Patient comfortable with above plan.
Subjective
Subjective
Date of Service: January 01, 2025
Overnight, patient had STUDENT SERVICES ADVISOR called due to worsening SOB, diaphoretic and felt clammy. Vital signs stable. He was moved to ICU as IMU overflow. Hgb 9.0 --> 7.8 without any GI bleeding despite urgency. He was transfused with 1 unit of PRBC, repeat Hgb
9.8. After lengthy discussion this morning with patient, given the complexity of his small bowel disease and prior small bowel bleeds that have been very difficult to reach, I reached out to [facility] and he has been accepted to the GI service for
transfer.
Objective
Data Reviewed
Laboratory Data:
Laboratory Results
01/01/25 04:38
Laboratory Results
PT 14.4 Sec (11.4-14.6) 01/01/25 04:38
INR 1.09 01/01/25 04:38
APTT 30.5 Sec (23.4-35.0) 01/01/25 04:38
Magnesium 1.8 mg/dl (1.6-2.3) 01/01/25 04:38
Total Bilirubin 0.5 mg/dl (0.2-1.3) 12/31/24 12:15
AST 25 U/L (17-59) 12/31/24 12:15
ALT 18 U/L (0-50) 12/31/24 12:15
Alkaline Phosphatase 67 U/L (38-126) 12/31/24 12:15
Vital Signs and I&O:
Vital Signs
Temp Pulse Resp BP Pulse Ox
97.8 F 99 23 128/88 98
01/01/25 07:40 01/01/25 09:13 01/01/25 09:13 01/01/25 09:13 01/01/25 09:13
I&O
12/31/24 01/01/25 01/02/25
06:59 06:59 06:59
Intake Total 450 / 450
Output Total 1350 / 1350
Balance -900 / -900
Physical Exam
Physical Exam
HEENT: Anicteric and Moist mucous membranes
GI: Soft, Non Distended and Non Tender
Extremities: No Edema
Neuro: Non Focal
--- NOTE | 2025-01-01 10:57 | W.PN.HOSP.TC ---
Today's Communication/Plan
-
Transfer to [facility] under Dr.Marc Phillips service.
Assessment / Plan
Assessment / Plan
Impression:
49-year-old male with past medical history significant for Crohn's disease s/p bowel resection in 2005 and 2021. Tried multiple medications in the past, medication noncompliance and not using any medications right now.
Recently discharged from the hospital on 12/30/2024, s/p colonoscopy and MR enterography
Abdominal CT/pelvis 12/28/2024
IMPRESSION:
Small focus of active intestinal bleeding in the right abdomen at the approximate level of anastomosis, possibly ileocolic anastomosis.
Tiny nonobstructing right renal calculus.
Colonoscopy 12/28/2024
Impression:
- Anal canal stenosis found on perianal exam.
- Blood in the entire examined ileum.
- Blood in the entire examined colon. Normal colonic mucosa without
inflammation.
- Stricture in the recto-sigmoid colon.
- Diverticulosis in the sigmoid colon.
MR [id number]/25
-Right lower quadrant short 3 cm segment of small bowel with active inflammation. Secondary luminal narrowing. Mild gaseous distention of small bowel, raising the possibility of an element of functional obstruction.
Patient admitted to the hospital, STORAGE RECEIPT POSTER called for symptomatic anemia and repeat hemoglobin dropped to 7.8 from 9.3 on admission.
Patient transferred to the IMU, and received 1 unit of blood transfusion.
GI recommending transfer to [facility] under gastroenterology service.
Patient was accepted under service of Dr.Marc Phillips.
Assessment/plan:
Lower GI bleeding.
Clear liquid diet.
GI consulted.
Plan to transfer to [facility] once available
Acute blood loss anemia
Symptomatic anemia
Status post blood transfusion
Vitamin B12 deficiency.
Continue vitamin B12
CODE STATUS: Full code
DVT prophylaxis: SCDS
Diet: CLD
Family communication: Discussed with at bedside
Disposition: Transfer to [facility] once bed available
Total time spent on today's encounter was 60 minutes which included time spent in counseling the patient/family regarding diagnosis and treatment plan as listed above, goals of care, and symptom management. Case was discussed with nursing staff,
specialists, and care coordinators/case management. All labs and imaging personally reviewed by me. Remainder the time spent in detailed review of previous records, lab data, imaging, and other medical provider documentation.
Anticipated Discharge: Today
Subjective/Interval History
-
Date of Service: January 01, 2025
Patient seen and examined at bedside, denies any chest pain or shortness of breath, no abdominal pain, no nausea, no vomiting, no diarrhea or constipation.
Patient was symptomatic overnight, STORAGE RECEIPT POSTER called and transferred to IMU, hemoglobin dropped to 7.8 from 9.3 on admission
Status post 1 unit of blood transfusion overnight-plan to transfer to [facility] GI service.
Objective Data
-
Labs:
Laboratory Results
12/31/24 01/01/25 01/01/25
23:43 02:00 04:38
WBC 7.6
Hgb 7.8 L Cancelled 9.8 L D
Hct 22.3 L Cancelled 28.6 L
Plt Count 208
PT 14.4
INR 1.09
APTT 30.5
Sodium 139
Potassium 4.2
Chloride 108 H
Carbon Dioxide 25
BUN 9
Creatinine 0.7
Glucose 92
Calcium 8.7
01/01/25
11:29
WBC
Hgb Pending
Hct Pending
Plt Count
PT
INR
APTT
Sodium
Potassium
Chloride
Carbon Dioxide
BUN
Creatinine
Glucose
Calcium
Vital Signs:
Vital Signs
Temp Pulse Resp BP Pulse Ox
97.8 F 99 23 128/88 98
01/01/25 07:40 01/01/25 09:13 01/01/25 09:13 01/01/25 09:13 01/01/25 09:13
I&O
12/31/24 01/01/25 01/02/25
06:59 06:59 06:59
Intake Total 450 / 450
Output Total 1350 / 1350
Balance -900 / -900
Physical Exam
-
General: Well Developed, Well Nourished, No Apparent Distress and Comfortable
HEENT: Normocephalic, Atraumatic, Moist Mucous Membranes, No Ptosis, PERRLA and Nose Appears Normal
Respiratory: Clear to Auscultation and Non Labored Respirations
Cardiac: Regular Rhythm and S1/S2
Breast: Deferred by me
GI: Soft, Nontender, Nondistended and Normal Bowel Sounds
Genito-urinary: No Costovertebral Tender
Musculoskeletal: No Clubbing, No Cyanosis and No Edema
Skin: Warm
Neuro: Awake, Alert, Oriented, AO x 3 and No Motor Deficits
Psych: Calm
Data Reviewed
-
Diagnostic Radiology: Image personally visualized and interpreted and Report Reviewed by me
CT Scan: Image personally visualized and interpreted and Report Reviewed by me
Ultrasound: Image personally visualized and interpreted and Report Reviewed by me
MRI: Image personally visualized and interpreted and Report Reviewed by me
Medical Tests (Nuc Med, Echo etc): Image personally visualized and interpreted and Report Reviewed by me
Labs: Labs Reviewed by me
Old Records: Reviewed
[2025-01-01 11:39] LABS: Hematocrit 32.1 % (39.0-52.0); Hemoglobin 11.1 g/dL (13.0-18.0)
[2025-01-01] MEDS: TYLENOL 650 MG PO (15:38)
[2025-01-01 19:02] LABS: Hematocrit 31.8 % (39.0-52.0); Hemoglobin 11.2 g/dL (13.0-18.0)
--- NOTE | 2025-01-01 20:00 | PTCARENOTE ---
Received pt. at 1900. Pt. awake, alert, and oriented. Denies pain/discomfort. Afebrile. Heart rhythm sinus. Blood pressure normotensive. Currently on room air. Lungs sound clear. Full liquid diet. Good appetite. No bloody stool/melena currently.
Voiding without issue. Skin as documented. Discussed plan of care with patient. Vital signs stable at this time.
[2025-01-02] VITALS (10 sets, daily range): BP systolic 96–124; BP diastolic 66–89; BMI 20.4
[2025-01-02 04:01] LABS: Hematocrit 32.8 % (39.0-52.0); Hemoglobin 11.2 g/dL (13.0-18.0); Mean Corp Hgb Conc. 34.1 g/dL (33.0-37.0); Mean Corpuscular Volume 85.6 fL (80.0-94.0); Nucleated Red Blood Cells % 0 % (-); Platelet Count 240 10^3/uL (130-400); Red Cell Dist. Width 13.2 % (11.5-14.5)
[2025-01-02 04:21] LABS: Blood Urea Nitrogen 10 mg/dl (9-20); Calcium 9.4 mg/dl (8.4-10.2); Carbon Dioxide 27 mmol/L (22-30); Chloride 107 mmol/L (98-107); Estimated Creatinine Clearance 104 ml/min; Glucose 94 mg/dl (70-99); Magnesium 1.9 mg/dl (1.6-2.3); Potassium 4.3 mmol/L (3.5-5.1); Sodium 138 mmol/L (135-145); eGFR > 60.00
[2025-01-02] MEDS: TYLENOL 650 MG PO (05:00)
--- NOTE | 2025-01-02 08:00 | PTCARENOTE ---
recieved patient at change of shift from previous RN. Pt AAOX3. denies pain. tolerating diet. no BM noted. active bowel sounds. ambulating in room independently. SR on telemetry heart rate 70-80s. pulses palpable. no edema. pt on room air. lung
sounds clear. pt updated on plan of care. see worklist for full nursing assessment.
--- NOTE | 2025-01-02 08:49 | W.PN.GI.CBS2 ---
Today's Communication / Plan
-
Check xray. Awaiting bed at [place] for transfer.
Assessment / Plan
-
12/31/24 CT Abd/pelvis Angio W/wo Iv Small focus of active intestinal bleeding in the right abdomen at the approximate level of anastomosis, possibly ileocolic anastomosis. Tiny nonobstructing right renal calculus.
12/29/24 MR Enterography Right lower quadrant short 3 cm segment of small bowel with active inflammation. Secondary luminal narrowing. Mild gaseous distention of small bowel, raising the possibility of an element of functional obstruction.
12/28/24 colonoscopy - Anal canal stenosis found on perianal exam.- Stricture in the recto-sigmoid colon - Blood in the entire examined ileum.- Diverticulosis in the sigmoid colon.
- Blood in the entire examined colon. Normal colonic mucosa without inflammation- No specimens collected
08/09/21-EGD� - Normal esophagus� - Gastritis. Biopsied - Normal examined duodenum. Biopsied. neg
08/09/21 colonoscopy - Ahmad The entire examined colon is normal - Stricture in the terminal ileum.
Duke Fenton is a 49 y.o. male with past medical history of small bowel crohns c/b TI stricture and multiple small bowel bleeds requiring SB resection x2 (2005, 2021 at [facility]) admitted with recurrent hematochezia. He was discharged yesterday after
presenting on Friday with GI bleeding, hemoglobin dropped from hgb 13.2 --> 9.2. He had a positive CTA showing active extravasation at the ileocolonic anastamosis. He susbsequently underwent a colonsocopy with Dr. Dangelo on 12/28, blood noted
throughout the colon and neoileum, unable to advanced more than 5 cm with clotted blood, anal stenosis, stricture in rectosigmoid colon. There was no evidence of an ileocolonic anastamosis. Upon further extensive chart review, multiple similar
presentations of small bowel bleeding, difficulty completing colonoscopies and even failed DBE at [facility], leading to his 2nd small bowel surgery.. He had a VCE get stuck at ileal stricture in 2005, leading to his first surgery. Repeat Hgb on current
admission is 9.3--> 0 --> 7.8 after INTRAMURAL DIRECTOR, however, no bloody BM since arrival. He was transfused with 1 unit of PRBC last night, repeat hgb with overcorrection to 9.8. It is difficult to interpret if the 7.8 hgb was real, especially given no BM.
It is very clear that he is having ongoing GI bleeding, with high suspicion for recurrent small bowel source. Either distal jejunum or more proximal ileum. Discussed case with Dr. Frank Ngo at [facility], who is in agreement that patient would
benefit from transfer for possible DBE in attempt to localize and treat his bleeding. Transfer pending bed availability.
Hgb remains stable. He does have known stricturing disease. Recommend abdominal xray given no BM in last 2 days, which is a significant change for the patient. I am reassured by his benign exam.
Subjective
Subjective
Date of Service: January 02, 2025
No overnight events. Patient accepted as a transfer to [facility], awaiting bed. He is concerned that he hasn't had a BM in the last 2 days, no abdominal pain. Hemoglobin stable.
Objective
Data Reviewed
Laboratory Data:
Laboratory Results
01/02/25 03:46
01/02/25 03:46
Laboratory Results
PT 14.4 Sec (11.4-14.6) 01/01/25 04:38
INR 1.09 01/01/25 04:38
APTT 30.5 Sec (23.4-35.0) 01/01/25 04:38
Magnesium 1.9 mg/dl (1.6-2.3) 01/02/25 03:46
Total Bilirubin 0.5 mg/dl (0.2-1.3) 12/31/24 12:15
AST 25 U/L (17-59) 12/31/24 12:15
ALT 18 U/L (0-50) 12/31/24 12:15
Alkaline Phosphatase 67 U/L (38-126) 12/31/24 12:15
Vital Signs and I&O:
Vital Signs
Temp Pulse Resp BP Pulse Ox
98 F 80 11 109/84 97
01/02/25 07:48 01/02/25 06:00 01/02/25 06:00 01/02/25 06:00 01/02/25 06:00
I&O
01/01/25 01/02/25 01/03/25
06:59 06:59 06:59
Intake Total 450 / 450 500 / 500
Output Total 1350 / 1350 1050 / 1050
Balance -900 / -900 -550 / -550
Physical Exam
Physical Exam
HEENT: Anicteric and Moist mucous membranes
GI: Soft, Non Distended, Non Tender and Other (Thin)
Extremities: No Edema
Neuro: Non Focal
[2025-01-02] MEDS: PROTONIX 40 MG PO ×2 (08:50→19:13)
--- NOTE | 2025-01-02 13:13 | W.PN.HOSP.TC ---
Today's Communication/Plan
-
Transfer to [facility] once bed available
Assessment / Plan
Assessment / Plan
Impression:
49-year-old male with past medical history significant for Crohn's disease s/p bowel resection in 2005 and 2021. Tried multiple medications in the past, medication noncompliance and not using any medications right now.
Recently discharged from the hospital on 12/30/2024, s/p colonoscopy and MR enterography
Abdominal CT/pelvis 12/28/2024
IMPRESSION:
Small focus of active intestinal bleeding in the right abdomen at the approximate level of anastomosis, possibly ileocolic anastomosis.
Tiny nonobstructing right renal calculus.
Colonoscopy 12/28/2024
Impression:
- Anal canal stenosis found on perianal exam.
- Blood in the entire examined ileum.
- Blood in the entire examined colon. Normal colonic mucosa without
inflammation.
- Stricture in the recto-sigmoid colon.
- Diverticulosis in the sigmoid colon.
MR [id number]/15/25
-Right lower quadrant short 3 cm segment of small bowel with active inflammation. Secondary luminal narrowing. Mild gaseous distention of small bowel, raising the possibility of an element of functional obstruction.
Patient admitted to the hospital, GAMMA RAY OPERATOR called for symptomatic anemia and repeat hemoglobin dropped to 7.8 from 9.3 on admission.
Patient transferred to the IMU, and received 1 unit of blood transfusion.
GI recommending transfer to [facility] under gastroenterology service.
Patient was accepted under service of Dr.Marc Phillips.
Assessment/plan:
Lower GI bleeding.
Clear liquid diet.
GI consulted.
Plan to transfer to [facility] once available
Acute blood loss anemia
Symptomatic anemia
Status post blood transfusion
Vitamin B12 deficiency.
Continue vitamin B12
CODE STATUS: Full code
DVT prophylaxis: SCDS
Diet: CLD
Family communication: Discussed with at bedside
Disposition: Transfer to [facility] once bed available
Total time spent on today's encounter was 60 minutes which included time spent in counseling the patient/family regarding diagnosis and treatment plan as listed above, goals of care, and symptom management. Case was discussed with nursing staff,
specialists, and care coordinators/case management. All labs and imaging personally reviewed by me. Remainder the time spent in detailed review of previous records, lab data, imaging, and other medical provider documentation.
Anticipated Discharge: Today
Subjective/Interval History
-
Date of Service: January 02, 2025
Patient seen and examined at bedside, denies any chest pain or shortness of breath, no abdominal pain, no nausea, no vomiting, no diarrhea or constipation.
Objective Data
-
Labs:
Laboratory Results
01/02/25
03:46
WBC 7.7
Hgb 11.2 L
Hct 32.8 L
Plt Count 240
Sodium 138
Potassium 4.3
Chloride 107
Carbon Dioxide 27
BUN 10
Creatinine 0.7
Glucose 94
Calcium 9.4
Vital Signs:
Vital Signs
Temp Pulse Resp BP Pulse Ox
97.4 F 80 13 117/69 98
01/02/25 11:55 01/02/25 08:00 01/02/25 08:00 01/02/25 08:00 01/02/25 08:00
I&O
01/01/25 01/02/25 01/03/25
06:59 06:59 06:59
Intake Total 450 / 450 500 / 500 480 / 480
Output Total 1350 / 1350 1050 / 1050
Balance -900 / -900 -550 / -550 480 / 480
Physical Exam
-
General: Well Developed, Well Nourished, No Apparent Distress and Comfortable
HEENT: Normocephalic, Atraumatic, Moist Mucous Membranes, No Ptosis, PERRLA and Nose Appears Normal
Respiratory: Clear to Auscultation and Non Labored Respirations
Cardiac: Regular Rhythm and S1/S2
Breast: Deferred by me
GI: Soft, Nontender, Nondistended and Normal Bowel Sounds
Genito-urinary: No Costovertebral Tender
Musculoskeletal: No Clubbing, No Cyanosis and No Edema
Skin: Warm
Neuro: Awake, Alert, Oriented, AO x 3 and No Motor Deficits
Psych: Calm
--- NOTE | 2025-01-02 22:15 | PTCARENOTE ---
Pt received start of shift, HR SR on telemetry. Pt denies any continuous pain in abd, but RUQ tender to palpation. Pt expressed anxiety surrounding timing of transport - transport center called and bed assigned to pt; [facility] [id number].
Transport arranged. Copy of chart and required forms sent with pt. Pt belongings with pt.
--- NOTE | 2025-01-03 08:24 | W.DCSUMMARY ---
Discharge Summary
Discharge Data
Date of Admission: 12/31/24
Date of Discharge: 01/02/25
Total time spent discharging patient (in min): 40
-
Pending Results: No
Hospital Course
Hospital course
49-year-old male with past medical history significant for Crohn's disease s/p bowel resection in 2005 and 2021. Tried multiple medications in the past, medication noncompliance and not using any medications right now.
Recently discharged from the hospital on 12/30/2024, s/p colonoscopy and MR enterography
Abdominal CT/pelvis 12/28/2024
IMPRESSION:
Small focus of active intestinal bleeding in the right abdomen at the approximate level of anastomosis, possibly ileocolic anastomosis.
Tiny nonobstructing right renal calculus.
Colonoscopy 12/28/2024
Impression:
- Anal canal stenosis found on perianal exam.
- Blood in the entire examined ileum.
- Blood in the entire examined colon. Normal colonic mucosa without
inflammation.
- Stricture in the recto-sigmoid colon.
- Diverticulosis in the sigmoid colon.
MR [id number]/15/25
-Right lower quadrant short 3 cm segment of small bowel with active inflammation. Secondary luminal narrowing. Mild gaseous distention of small bowel, raising the possibility of an element of functional obstruction.
Patient admitted to the hospital, SQUARING SHEAR OPERATOR called for symptomatic anemia and repeat hemoglobin dropped to 7.8 from 9.3 on admission.
Patient transferred to the IMU, and received 1 unit of blood transfusion.
GI recommending transfer to [facility] under gastroenterology service.
Patient was accepted under service of Dr.Marc Phillips.
During hospitalization patient was treated from the following
Lower GI bleeding.
Clear liquid diet.
GI consulted.
Plan to transfer to [facility] once available
Acute blood loss anemia
Symptomatic anemia
Status post blood transfusion
Vitamin B12 deficiency.
Continue vitamin B12
CODE STATUS: Full code
DVT prophylaxis: SCDS
Diet: CLD
Family communication: Discussed with at bedside
Disposition: Transfer to [facility] once bed available
Total time spent on today's encounter was 40 minutes which included time spent in counseling the patient/family regarding diagnosis and treatment plan as listed above, goals of care, and symptom management. Case was discussed with nursing staff,
specialists, and care coordinators/case management. All labs and imaging personally reviewed by me. Remainder the time spent in detailed review of previous records, lab data, imaging, and other medical provider documentation.
Anticipated Discharge: Today
Discharge Plan
-
Patient Disposition: Acute Care Hospital
Discharge Orders:
Discharge Patient (As Directed); Ordered 01/02/25
Ordered By: Whitney Holm
Discharge Date and Time
Discharge Date/Time: 01/02/25 22:10
Print Language: INDONESIAN
--- NOTE | 2025-01-03 09:03 | CM ---
Medically cleared for discharge to home with no additional skilled needs. Patient arranged for transport home.
== END 2025-01-02 22:10 | disposition short-term general hospital (02) | DRG 386 ==
LOC: ICU 15:41
PROVIDERS: Emergency Medicine; ADMITTING PHYSICIAN General Practice; CONSULT PHYSICIAN Internal Medicine; EMERGENCY PHYSICIAN Emergency Medicine
PROC: 30233N1 Transfusion of Nonautologous Red Blood Cells into Peripheral Vein, Percutaneous Approach (ICD-10-PCS; 2025-01-01)
DX: K50.911 Crohn's disease, unspecified, with rectal bleeding (principal); D62 Acute posthemorrhagic anemia; K63.89 Other specified diseases of intestine; K62.4 Stenosis of anus and rectum; D50.9 Iron deficiency anemia, unspecified; E53.8 Deficiency of other specified B group vitamins; Z79.899 Other long term (current) drug therapy; Z91.148 Patient's other noncompliance with medication regimen for other reason
CPT/HCPCS: 74018; 80048; 80053; 82962; 83735; 85014; 85018; 85025; 85610; 85652; 85730; 86140; 86850; 86900; 86901; 86920; 93005; 99284; P9016

== ENCOUNTER → 2025-01-20 10:35 | Outpatient (REF) | payer OTHER, SELFPAY ==
[2025-01-20 11:19] LABS: Hematocrit 32.3 % (39.0-52.0); Hemoglobin 10.5 g/dL (13.0-18.0); Mean Corp Hgb Conc. 32.5 g/dL (33.0-37.0); Mean Corpuscular Volume 91.5 fL (80.0-94.0); Nucleated Red Blood Cells % 0 % (-); Platelet Count 388 10^3/uL (130-400); Red Cell Dist. Width 14.4 % (11.5-14.5)
== END ==
LOC: REG 10:35
PROVIDERS: ATTENDING PHYSICIAN Internal Medicine Gastroenterology; FAMILY PHYSICIAN Family Medicine
DX: K50.919 Crohn's disease, unspecified, with unspecified complications (principal); D50.0 Iron deficiency anemia secondary to blood loss (chronic)
CPT/HCPCS: 36415; 85025